=== PATIENT | female | born 1970 | race African-American/Black ===

== ENCOUNTER 2021-06-10 14:40 | Inpatient (IN) ==
[2021-06-10] MEDS ORDERED: ZOFRAN INJ 4 MG VIAL IVP ONE (15:19)
[2021-06-10] MEDS ORDERED: NS 1000 ML 1,000 ML IV ONE (15:19)
[2021-06-10] MEDS ORDERED: TORADOL 30 MG VIAL IVP ONE (15:19)
[2021-06-10 15:22] VITALS: BMI 30.6
--- NOTE | 2021-06-10 15:25 | DR.DIZZY ---
HPI Time seen Time Seen by Provider: 06/10/21 15:05 Complaint Chief Complaint Doctor Comments: 51 y/o female recently diagnosed with covid 8 days ago, presents with persistent N/V and diarrhea. Seen here 2 days ago for the same. Also having LLQ abdominal pain. Pain is constant, sharp, does not radiate. Nothing makes it better, nothing makes it worse. Has been having fever, chills, cough, dyspnea. Has generalized weakness. Was treated last week with azithromycin. COVID-19 Coronavirus risk:travel/contact w/high risk person: No Has patient experienced Coronavirus symptoms: Yes Coronavirus symptoms experienced: Fever, Coughing and Shortness of Breath Nurses Notes Reviewed Nurses Notes Review: Yes Source History Provided: Patient Mode of Arrival Mode of Arrival: Wheelchair Timing Came on: Gradually Duration Duration: Since Onset Location of Weakness Weakness Location: Generalized Context Onset: At rest Does pt take pot. toxic medication?: No Stroke Symptoms: None Severity Severity: Abnormal activity level Modifying factors Worsens: Nothing Associated signs and symptoms Associated Signs and Symptoms: Weak, Fever, Nausea and Vomiting PMH PMH Past Surgical History: Yes Surgical History: Social History Do you use any recreational Drugs:: No ROS Review of Systems Constitutional: Chills, Fever, Malaise, Weakness and Fatigue Eyes: No Symptoms Reported ENTM: No Symptoms Reported Respiratoy: Non-Productive Cough and Short of Breath Cardiovascular: No Symptoms Reported Gastrointestinal/Abdominal: Abdominal Pain (LLQ), Diarrhea, Nausea and Vomiting Genitourinary: No Symptoms Reported Neurological: Headache, Weakness and Dizziness Musculoskeletal: Muscle Pain Integumentary: No Symptoms Reported Hematologic/Lymphatic: No Symptoms Reported Endocrine: No Symptoms Reported Psychiatric: No Symptoms Reported All Other Systems: Reviewed and Negative PE Vital Signs Vitals: Temperature 96.7 F Pulse Rate 78 Respiratory Rate 16 Blood Pressure [Left Arm] 98/58 Blood Pressure 101/66 O2 Sat by Pulse Oximetry 96 General Limitations: No Limitations General Appearance: Alert and In No Apparent Distress Head Head Exam: Normal Inspection Eyes Eye exam: Normal Appearance ENT ENT Exam: Normal Exam Neck Neck Exam: Normal Inspection Chest Chest Inspection: Normal Inspection Respiratory Respiratory Exam: Normal Lung Sounds Bilat; negative Accessory Muscle Use and Respiratory Distress Respiratory Exam: Bilateral: Clear to Auscultation Cardiovascular Cardiovascular Exam: Regular Rate, Normal Rhythm and Normal Heart Sounds Abdominal Exam Abdominal Exam: Normal Inspection, Normal Bowel Sounds and Tenderness (LLQ, no guarding or rebound) Extremeties Extremities Exam: Normal Inspection and Full ROM; negative Edema Back Back Exam: Normal Inspection Neurologic Neurological Exam: Alert, Oriented X3 and CN II-XII Intact; negative Motor Sensory Deficit Psychiatric Psychiatric Exam: Normal Affect and Normal Mood Skin Skin Exam: Warm and Dry MDM Differential Diagnosis Differential Diagnosis Comment: covid, gastroenteritis, diverticulitis, dehydration,electrolyte abn COURSE Treatment Treatment: 51 y/o female with covid last week, not doing well. Having persistent N/V/D, now with LLQ abdominal pain. Having cough, degree of dyspnea. Good pulse ox. W/u initiated. Given IV fluids, IV zofran. 1805 - CT of abd/pelvis acce ptable. Does have covid changes in the lungs, c/w viral pneumonia. Has sludge in the GB and uterine fibroids noted. Does have degree of hyponatremia, 132. 2nd ER visit for this pt, having persistent N/V/D and 8 days into Covid infection. Will admit for further IV fluids, start remdisivir. Discussed with Dr. Marc, accepts the admission. ROR Labs Reviewed Laboratory Results Reviewed?: Yes Result Diagrams: 06/10/21 15:36 06/10/21 15:36 Laboratory: WBC 3.3 X10^3/uL (3.6-10.0) L 06/10/21 15:36 RBC 4.81 X10^6/uL (3.5-5.4) 06/10/21 15:36 Hgb 11.9 g/dL (12.0-16.0) L 06/10/21 15:36 Hct 37.0 % (36.0-47.0) 06/10/21 15:36 MCV 76.9 fL (80.0-100.0) L 06/10/21 15:36 MCH 24.7 pg (27.0-34.0) L 06/10/21 15:36 MCHC 32.1 g/dL (33.0-35.0) L 06/10/21 15:36 RDW 18.2 % (11.6-16.5) H 06/10/21 15:36 Plt Count 146 X10^3/uL (150.0-450.0) L 06/10/21 15:36 MPV 9.0 fL (7.4-11.0) 06/10/21 15:36 Neut % (Auto) 55.5 % (42.0-75.0) 06/10/21 15:36 Lymph % (Auto) 33.9 % (21.0-51.0) 06/10/21 15:36 [place] % (Auto) 9.5 % (0.0-13.0) 06/10/21 15:36 Eos % (Auto) 0.4 % (0.9-2.9) L 06/10/21 15:36 Baso % (Auto) 0.7 % (0.2-1.0) 06/10/21 15:36 Neut # (Auto) 1.8 x10^3/uL (2.2-4.8) L 06/10/21 15:36 Lymph # (Auto) 1.1 X10^3/uL (1.3-2.9) L 06/10/21 15:36 [place] # (Auto) 0.3 x10^3/uL (0.3-0.8) 06/10/21 15:36 Eos # (Auto) 0.0 x10^3/uL (0.0-0.2) 06/10/21 15:36 Baso # (Auto) 0.0 X10^3/uL (0.0-0.1) 06/10/21 15:36 Absolute Nucleated RBC 0.1 /100WBC 06/10/21 15:36 Sodium 132 mmol/L (136-145) L 06/10/21 15:36 Corrected Sodium TNP 06/10/21 15:36 Potassium 4.5 mmol/L (3.5-5.1) 06/10/21 15:36 Chloride 97 mmol/L (98-107) L 06/10/21 15:36 Carbon Dioxide 27.7 mmol/L (21-32) 06/10/21 15:36 BUN 20 mg/dL (7-18) H 06/10/21 15:36 Creatinine 1.54 mg/dL (0.55-1.02) H 06/10/21 15:36 Est GFR (MDRD) Af Amer 46 (>60) L 06/10/21 15:36 Est GFR (MDRD) Non-Af 38 (>60) L 06/10/21 15:36 Glucose 94 mg/dL (65-99) 06/10/21 15:36 Calcium 8.5 mg/dL (8.5-10.1) 06/10/21 15:36 Corrected Calcium TNP 06/10/21 15:36 Total Bilirubin 1.60 mg/dL (0.2-1.0) H 06/10/21 15:36 AST 47 Units/L (15-37) H 06/10/21 15:36 ALT 17 Units/L (12-78) 06/10/21 15:36 Alkaline Phosphatase 63 Units/L (46-116) 06/10/21 15:36 Total Protein 7.2 g/dL (6.4-8.2) 06/10/21 15:36 Albumin 3.4 g/dL (3.4-5.0) 06/10/21 15:36 Globulin 3.8 g/dL (2.5-4.5) 06/10/21 15:36 Albumin/Globulin Ratio 0.9 Ratio (1.1-2.1) L 06/10/21 15:36 Lipase 290 Units/L (73-393) 06/10/21 15:36 Other Results Comments: Mild hyponatremia XRAY XRAY Interpreted by: Radiologist X-ray Results: CT without acute abnormalities. CXR - with changes c/w covid pneumonia Opioid Opioid Risk Tool Age (Agustin box if 16-45): No History of Preadolescent Sexual Abuse: No Total: 0 Total Score Risk Category: Low Risk Copyright: Demetrio PHAM predicting aberrant behaviors Diagnosis Discharge Problem: Acute hyponatremia, Vomiting and diarrhea, Pneumonia due to COVID-19 virus
[2021-06-10] MEDS ORDERED: NS 1000 ML 1,000 ML ONE (15:32)
[2021-06-10 15:49] LABS: BASOPHILS % (AUTO) 0.7 % (0.2-1.0); EOSINOPHILS % (AUTO) 0.4 % (0.9-2.9); HEMOGLOBIN 11.9 g/dL (12.0-16.0); LYMPHOCYTES # (AUTO) 1.1 X10^3/uL (1.3-2.9); LYMPHOCYTES % (AUTO) 33.9 % (21.0-51.0); MEAN CORPUSCULAR HEMOGLOBIN 24.7 pg (27.0-34.0); MEAN CORPUSCULAR HGB CONC 32.1 g/dL (33.0-35.0); MEAN CORPUSCULAR VOLUME 76.9 fL (80.0-100.0); MONOCYTES # (AUTO) 0.3 x10^3/uL (0.3-0.8); MONOCYTES % (AUTO) 9.5 % (0.0-13.0); NEUTROPHILS # (AUTO) 1.8 x10^3/uL (2.2-4.8); NEUTROPHILS % (AUTO) 55.5 % (42.0-75.0); PLATELET COUNT 146 X10^3/uL (150.0-450.0); RED BLOOD COUNT 4.81 X10^6/uL (3.5-5.4); RED CELL DISTRIBUTION WIDTH 18.2 % (11.6-16.5); WHITE BLOOD COUNT 3.3 X10^3/uL (3.6-10.0)
[2021-06-10 15:58] LABS: ALANINE AMINOTRANSFERASE 17 Units/L (12-78); ALBUMIN 3.4 g/dL (3.4-5.0); ALKALINE PHOSPHATASE 63 Units/L (46-116); ASPARTATE AMINO TRANSFERASE 47 Units/L (15-37); BLOOD UREA NITROGEN 20 mg/dL (7-18); CALCIUM 8.5 mg/dL (8.5-10.1); CARBON DIOXIDE 27.7 mmol/L (21-32); CHLORIDE 97 mmol/L (98-107); CREATININE 1.54 mg/dL (0.55-1.02); LIPASE 290 Units/L (73-393); SODIUM 132 mmol/L (136-145); TOTAL PROTEIN 7.2 g/dL (6.4-8.2); eGFR NON BLACK RACES 38 (>60)
[2021-06-10] MEDS ORDERED: TORADOL 30 MG VIAL ONE (16:07)
[2021-06-10] MEDS ORDERED: ZOFRAN INJ 4 MG VIAL ONE (16:08)
--- NOTE | 2021-06-10 16:37 | RAD ---
HISTORYpt reports she tested covid + on 06/02/21, was feeling better but diarrhea and abd pain returned C-SECTIONSTUDYCHEST, 1 VIEWCOMPARISON: NoneFINDINGSThe trachea is midline. There is an automated device projecting in the left lower chest with a lead in the right upper chest. There is [id number] cardiomegaly. There is central vascular congestion with ground-glass radiopacities in the perihilar regions with asymmetry right more than left,there is also some ground-glass radiopacities in the right lower lobe suggestive of more focal pneumoniaIMPRESSIONPerihilar radiopacities right more than left as well as in the right lower lobe could represent viral pneumonia and less likely pulmonary edema. Central congestion without Vinayak B-lines or interstitial pulmonary edemaElectronically signed by: Corry Lund (Jun 10, 2021 16:34:58)
--- NOTE | 2021-06-10 17:08 | CT ---
HISTORYPt was seen on 06/08 for abd pain & n/v/d. got IV fluids and meds on 06/08, was feeling better but diarrhea and abd pain returned this morning.STUDYABDOMEN/PELVIS W/O CONCOMPARISONNone availableTECHNIQUEAxial images through the abdomen and pelvis were performed without contrast. CT scan was performed following ALARA (As low as Reasonably Achievable).Coronal and Sagittal reformatted images were performed.FINDINGSThe lung bases demonstrate patchy perihilar infiltrates bilaterally with some air bronchogram. There is cardiomegaly. There is also a patchy radiopacity in the right middle lobe and some ground-glass radiopacity in the periphery suspicious for pneumonia.The liver demonstrate no focal lesions and measures 17 centimeters. The spleen is nonenlarged, the stomach is not distended, the pancreas is unremarkable for noncontrast CT. There is suspected sludge in the gallbladder, no inflammatory changes at the level. There is no adrenal masses. There are bilateral normal-sized kidneys without hydronephrosis. No focal dilatation of the abdominal aorta. There is a small umbilical hernia containing a bowel loop without obstruction. There is no evidence of free air or free fluidPelvis the uterus is diffusely enlarge with multiple intramural and subserosal fibroids, measuring approximately 18.3 x 9.3 by 10.3 centimeters, the uterus cannot be well identified. The vagina is deviated to the right. There is no evidence of pelvic adenopathy, no free fluid in the cul de sac, there is mass effect in the urinary bladder for diffusely enlarged uterus. No colitis. No secondary signs of appendicitis.Bone windows no evidence of aggressive bone lesions. No acute fractures.IMPRESSIONPatchy perihilar infiltrates with air bronchogram as well as right middle lobe and peripheral ground-glass radiopacities suspicious for viral pneumonia.Diffusely enlarged and distorted uterus with multiple fibroids with the uterus projecting above the pelvic ring consider fibroids. No free air or free fluidUmbilical hernia containing small bowel loops without obstructionSludge in the gallbladderElectronically signed by: Corry Lund (Jun 10, 2021 17:06:57)
[2021-06-10 18:18] LABS: GLUCOSE, URINE NEGATIVE (NEGATIVE); KETONES,URINE 1+ (NEGATIVE); LEUKOCYTE ESTERASE ,URINE 1+ (NEGATIVE); PROTEIN,URINE 3+ (NEGATIVE)
[2021-06-10 19:44] LABS: BILIRUBIN,URINE 2+ (NEGATIVE); BLOOD/HEMOGLOBIN,URINE 2+ (NEGATIVE); NITRITES,URINE POSITIVE (NEGATIVE); UROBILINOGEN,URINE 3+ (NORMAL)
[2021-06-10 19:54] LABS: APPEARANCE,URINE SLIGHTLY HAZY (CLEAR); COLOR,URINE DARK YELLOW (YELLOW)
[2021-06-10 19:55] LABS: RBC,URINE 0-2 /HPF (0-3)
[2021-06-10 19:56] LABS: BACTERIA,URINE 4+ /HPF (NEGATIVE); GRANULAR CASTS,URINE NUMEROUS /LPF (NEGATIVE); SQUAMOUS EPITHELIAL CELL,UR MODERATE /HPF (NEGATIVE)
[2021-06-10] MEDS ORDERED: PEPCID TAB 40 MG PO SCH (21:00)
[2021-06-10 21:15] LABS: BASOPHILS # (AUTO) 0.1 X10^3/uL (0.0-0.1); BASOPHILS % (AUTO) 2.3 % (0.2-1.0); EOSINOPHILS % (AUTO) 0.8 % (0.9-2.9); HEMATOCRIT 37.8 % (36.0-47.0); LYMPHOCYTES # (AUTO) 1.1 X10^3/uL (1.3-2.9); LYMPHOCYTES % (AUTO) 35.9 % (21.0-51.0); MEAN CORPUSCULAR HEMOGLOBIN 24.4 pg (27.0-34.0); MEAN CORPUSCULAR HGB CONC 31.6 g/dL (33.0-35.0); MEAN CORPUSCULAR VOLUME 77.2 fL (80.0-100.0); MEAN PLATELET VOLUME 9.4 fL (7.4-11.0); MONOCYTES # (AUTO) 0.3 x10^3/uL (0.3-0.8); MONOCYTES % (AUTO) 9.8 % (0.0-13.0); NEUTROPHILS # (AUTO) 1.5 x10^3/uL (2.2-4.8); NEUTROPHILS % (AUTO) 51.2 % (42.0-75.0); PLATELET COUNT 151 X10^3/uL (150.0-450.0); RED CELL DISTRIBUTION WIDTH 18.5 % (11.6-16.5)
[2021-06-10 21:27] LABS: ALANINE AMINOTRANSFERASE 17 Units/L (12-78); ALBUMIN 3.2 g/dL (3.4-5.0); ALKALINE PHOSPHATASE 61 Units/L (46-116); ASPARTATE AMINO TRANSFERASE 42 Units/L (15-37); BLOOD UREA NITROGEN 22 mg/dL (7-18); CALCIUM 8.4 mg/dL (8.5-10.1); CARBON DIOXIDE 23.5 mmol/L (21-32); CHLORIDE 98 mmol/L (98-107); CREATININE 1.67 mg/dL (0.55-1.02); SODIUM 133 mmol/L (136-145); TOTAL PROTEIN 6.9 g/dL (6.4-8.2); TROPONIN I 0.03 ng/mL (0-1.5); eGFR NON BLACK RACES 35 (>60)
[2021-06-10] MEDS ORDERED: BROVANA ONE (21:30)
[2021-06-10] MEDS ORDERED: PULMICORT NEB TX 0.5 MG NEB ONE (21:31)
[2021-06-10 21:32] LABS: GIANT PLATELET FEW
[2021-06-10 21:33] LABS: PLATELET MORPHOLOGY COMMENT ABNORMAL (NORMAL)
[2021-06-10] MEDS: BROVANA IN SCH (21:43)
[2021-06-10] MEDS: PULMICORT NEB TX 0.5 MG NEB SCH (21:43)
[2021-06-10] MEDS ORDERED: REMDESIVIR 200 MG in NS 250 ML IV 250 ML IV ONE (22:00)
[2021-06-10] MEDS: VIBRAMYCIN 100 MG in D5W 250 ML IV 250 ML IV SCH (23:30)
[2021-06-10] MEDS: NS 1000 ML 1,000 ML IV SCH (23:40)
[2021-06-11] MEDS: LOVENOX INJ 30 MG SYR SC SCH ×2 (02:00→08:42)
[2021-06-11 04:58] LABS: BASOPHILS % (AUTO) 0.4 % (0.2-1.0); EOSINOPHILS % (AUTO) 1.8 % (0.9-2.9); HEMATOCRIT 34.1 % (36.0-47.0); LYMPHOCYTES # (AUTO) 1.3 X10^3/uL (1.3-2.9); LYMPHOCYTES % (AUTO) 49.4 % (21.0-51.0); MEAN CORPUSCULAR HEMOGLOBIN 25.5 pg (27.0-34.0); MEAN CORPUSCULAR HGB CONC 32.3 g/dL (33.0-35.0); MEAN PLATELET VOLUME 9.7 fL (7.4-11.0); MONOCYTES # (AUTO) 0.3 x10^3/uL (0.3-0.8); MONOCYTES % (AUTO) 11.6 % (0.0-13.0); NEUTROPHILS % (AUTO) 36.8 % (42.0-75.0); PLATELET COUNT 153 X10^3/uL (150.0-450.0); RED BLOOD COUNT 4.32 X10^6/uL (3.5-5.4); RED CELL DISTRIBUTION WIDTH 18.2 % (11.6-16.5); WHITE BLOOD COUNT 2.6 X10^3/uL (3.6-10.0)
[2021-06-11 05:17] LABS: ALANINE AMINOTRANSFERASE 14 Units/L (12-78); ALBUMIN 2.9 g/dL (3.4-5.0); ALKALINE PHOSPHATASE 55 Units/L (46-116); ASPARTATE AMINO TRANSFERASE 39 Units/L (15-37); BLOOD UREA NITROGEN 22 mg/dL (7-18); CALCIUM 8.1 mg/dL (8.5-10.1); CARBON DIOXIDE 26.2 mmol/L (21-32); CHLORIDE 99 mmol/L (98-107); CREATININE 1.53 mg/dL (0.55-1.02); SODIUM 134 mmol/L (136-145); TOTAL PROTEIN 6.5 g/dL (6.4-8.2); eGFR NON BLACK RACES 38 (>60)
[2021-06-11] MEDS: NS 1000 ML 1,000 ML IV SCH ×3 (06:26→21:00)
[2021-06-11] MEDS: VIBRAMYCIN 100 MG in D5W 250 ML IV 250 ML IV SCH ×2 (08:43→21:00)
[2021-06-11] MEDS: PEPCID TAB 20 MG PO SCH (08:43)
[2021-06-11] MEDS: BROVANA IN SCH ×2 (09:35→20:45)
[2021-06-11] MEDS: PULMICORT NEB TX 0.5 MG NEB SCH ×2 (09:35→20:45)
[2021-06-11] MEDS: ALDACTONE TAB 25 MG PO SCH (09:45)
[2021-06-11] MEDS: COREG TAB 12.5 MG PO SCH ×2 (09:45→21:00)
[2021-06-11] MEDS: LASIX PO SCH (09:45)
[2021-06-11] MEDS: MICRO K EXTEN CAP 10 MEQ PO SCH (09:46)
--- NOTE | 2021-06-11 10:17 | DR.H&P ---
H&P History & Physical for Day of: H&P Date: 06/11/21 Chief Complaint Chief Complaint: Nausea/vomiting, diarrhea Weakness Allergies Allergies Allergy/AdvReac Type Severity Reaction Status Date / Time amoxicillin Allergy Verified 06/10/21 14:48 prednisone Allergy Verified 06/08/21 21:11 History of Present Illness History of Present Illness: Pt is a 51 year old female past medical history Cardiomyopathy(Defibrillator, EF~20% per patient), presenting with COVID-19 infection that was diagnosed 1 week ago. Since then, she has had persistent nausea, vomiting, diarrhea, and generalized weakness. Denies shortness of breath. Labs/imaging: Wbc 2.6, Hgb 11, Plt 153, Na 133, K 4.3, Creatinine 1.53, Glucose 90, COVID-19 positive, CXR: Perihilar radiopacities right more than left as well as in the right lower lobe could represent viral pneumonia and less likely pulmonary edema. Central congestion without Vinayak B-lines or interstitial pulmonary edema. CTAP: Patchy perihilar infiltrates with air bronchogram as well as right middle lobe and peripheral ground-glass radiopacities suspicious for viral pneumonia. Diffusely enlarged and distorted uterus with multiple fibroids with the uterus projecting above the pelvic ring consider fibroids. No free air or free fluid. Umbilical hernia containing small bowel loops without obstruction. Sludge in the gallbladder. Pt was started on IVF NS@125ml/h, Remdesivir, IV Doxycycline, IV Zofran prn for nausea, pneumonia protocol. Will decrease IVF to KVO due to HFrEF. Advance diet as tolerated. Continue to monitor and follow up labs in the morning. Past Surgical History Surgical History: Family History Family Medical History: Hypertension Social History Does patient currently use any type of tobacco product: No Alcohol Use: None Drug Use: None Medications Home Medications: amoxicillin Allergy (Verified 06/10/21 14:48) prednisone Allergy (Verified 06/08/21 21:11) CONTINUE taking the following medications apixaban [Eliquis] 2.5 mg PO BID 06/11/21 [History] carvedilol 12.5 mg PO BID 06/11/21 [History] furosemide 40 mg PO DAILY 06/11/21 [History] potassium chloride 10 meq PO DAILY 06/11/21 [History] spironolactone 25 mg PO DAILY 06/11/21 [History] zinc sulfate 220 mg PO BID 06/11/21 [History] Labs Result Diagrams: 06/11/21 04:05 06/11/21 04:05 Labs: Laboratory WBC 2.6 X10^3/uL (3.6-10.0) L 06/11/21 04:05 RBC 4.32 X10^6/uL (3.5-5.4) 06/11/21 04:05 Hgb 11.0 g/dL (12.0-16.0) L 06/11/21 04:05 Hct 34.1 % (36.0-47.0) L 06/11/21 04:05 MCV 79.0 fL (80.0-100.0) L 06/11/21 04:05 MCH 25.5 pg (27.0-34.0) L 06/11/21 04:05 MCHC 32.3 g/dL (33.0-35.0) L 06/11/21 04:05 RDW 18.2 % (11.6-16.5) H 06/11/21 04:05 Plt Count 153 X10^3/uL (150.0-450.0) 06/11/21 04:05 Plt Count Comment Adequate (ADEQUATE) 06/10/21 21:05 MPV 9.7 fL (7.4-11.0) 06/11/21 04:05 Neut % (Auto) 36.8 % (42.0-75.0) L 06/11/21 04:05 Lymph % (Auto) 49.4 % (21.0-51.0) 06/11/21 04:05 [place] % (Auto) 11.6 % (0.0-13.0) 06/11/21 04:05 Eos % (Auto) 1.8 % (0.9-2.9) 06/11/21 04:05 Baso % (Auto) 0.4 % (0.2-1.0) 06/11/21 04:05 Neut # (Auto) 1.0 x10^3/uL (2.2-4.8) L 06/11/21 04:05 Lymph # (Auto) 1.3 X10^3/uL (1.3-2.9) 06/11/21 04:05 [place] # (Auto) 0.3 x10^3/uL (0.3-0.8) 06/11/21 04:05 Eos # (Auto) 0.0 x10^3/uL (0.0-0.2) 06/11/21 04:05 Baso # (Auto) 0.0 X10^3/uL (0.0-0.1) 06/11/21 04:05 Absolute Nucleated RBC 0.4 /100WBC 06/11/21 04:05 Giant Platelets Few 06/10/21 21:05 Plt Morphology Comment Abnormal (NORMAL) A 06/10/21 21:05 RBC Morphology Normal (NORMAL) 06/10/21 21:05 Sodium 134 mmol/L (136-145) L 06/11/21 04:05 Corrected Sodium TNP 06/11/21 04:05 Potassium 3.7 mmol/L (3.5-5.1) 06/11/21 04:05 Chloride 99 mmol/L (98-107) 06/11/21 04:05 Carbon Dioxide 26.2 mmol/L (21-32) 06/11/21 04:05 BUN 22 mg/dL (7-18) H 06/11/21 04:05 Creatinine 1.53 mg/dL (0.55-1.02) H 06/11/21 04:05 Est GFR (MDRD) Af Amer 46 (>60) L 06/11/21 04:05 Est GFR (MDRD) Non-Af 38 (>60) L 06/11/21 04:05 Glucose 83 mg/dL (65-99) 06/11/21 04:05 POC Glucose (mg/dL) 75 mg/dL (65-99) 06/11/21 06:01 Calcium 8.1 mg/dL (8.5-10.1) L 06/11/21 04:05 Corrected Calcium 9.0 mg/dL (8.5-10.1) 06/11/21 04:05 Total Bilirubin 1.40 mg/dL (0.2-1.0) H 06/11/21 04:05 AST 39 Units/L (15-37) H 06/11/21 04:05 ALT 14 Units/L (12-78) 06/11/21 04:05 Alkaline Phosphatase 55 Units/L (46-116) 06/11/21 04:05 Troponin I 0.03 ng/mL (0-1.5) 06/10/21 21:05 Total Protein 6.5 g/dL (6.4-8.2) 06/11/21 04:05 Albumin 2.9 g/dL (3.4-5.0) L 06/11/21 04:05 Globulin 3.6 g/dL (2.5-4.5) 06/11/21 04:05 Albumin/Globulin Ratio 0.8 Ratio (1.1-2.1) L 06/11/21 04:05 Lipase 290 Units/L (73-393) 06/10/21 15:36 Specimen Type Clean catch urine 06/10/21 16:48 Urine Color Dark yellow (YELLOW) 06/10/21 16:48 Urine Appearance Slightly hazy (CLEAR) 06/10/21 16:48 Urine pH 5.0 (5.0 - 8.0) 06/10/21 16:48 Ur Specific [place] 1.030 (1.000-1.030) 06/10/21 16:48 Urine Protein 3+ (NEGATIVE) 06/10/21 16:48 Urine Glucose (UA) Negative (NEGATIVE) 06/10/21 16:48 Urine Ketones 1+ (NEGATIVE) 06/10/21 16:48 Urine Occult Blood 2+ (NEGATIVE) 06/10/21 16:48 Urine Nitrite Positive (NEGATIVE) 06/10/21 16:48 Urine Bilirubin 2+ (NEGATIVE) 06/10/21 16:48 Urine Urobilinogen 3+ (NORMAL) 06/10/21 16:48 Ur Leukocyte Esterase 1+ (NEGATIVE) 06/10/21 16:48 Urine RBC 0-2 /HPF (0-3) 06/10/21 16:48 Urine WBC 5-10 /HPF (0-5) A 06/10/21 16:48 Ur Squamous Epith Cells Moderate /HPF (NEGATIVE) 06/10/21 16:48 Urine Bacteria 4+ /HPF (NEGATIVE) 06/10/21 16:48 Granular Casts Numerous /LPF (NEGATIVE) 06/10/21 16:48 Ur Culture Indicated? Yes/culture set up 06/10/21 16:48 Review of Systems Constitutional: Weakness; denies Fever and Chills Eyes: No Symptoms Reported ENT: No Symptoms Reported Respiratory: No Symptoms Reported Cardiovascular: No Symptoms Reported Gastrointestinal: Nausea, Vomiting, Abdominal Pain and Diarrhea; denies Constipation Genitourinary: No Symptoms Reported Musculoskeletal: No Symptoms Reported Skin: No Symptoms Reported Neurological: No Symptoms Reported Physical Exam Vital Signs: Temperature 97.4 F Pulse Rate [Apical] 70 Pulse Rate 83 Respiratory Rate 20 Blood Pressure [Left Arm] 101/64 Blood Pressure 101/66 O2 Sat by Pulse Oximetry 97 Oriented: Normal Eyes: Normal Ear: Normal Nose: Normal Throat: Normal Respiratory: Clear Throughout Cardiovascular: Normal : Normal Auscultation: Bowel Sounds: Normal Palpation: Normal Tenderness: Epigastric and Mild Skin: Normal Musculoskeletal: Normal Psychiatric: Normal Mood Description: Calm and Appropriate Affect: Normal Speech Pattern: Clear and Appropriate Assessment/Plan (1) Acute dehydration: Status: Acute (2) COVID-19 virus infection: Status: Acute (3) Acute hyponatremia: Status: Acute (4) Vomiting and diarrhea: Status: Acute Review H&P Reviewed: Yes Patient was examined?: Yes
[2021-06-11] MEDS: ZOFRAN INJ 4 MG VIAL IVP PRN (11:38)
[2021-06-11] MEDS: XANAX PO PRN (12:06)
[2021-06-11] MEDS: REMDESIVIR 100 MG in NS 250 ML IV 250 ML IV SCH (20:00)
[2021-06-11] MEDS: ELIQUIS PO SCH (21:00)
[2021-06-12 06:09] LABS: BASOPHILS % (AUTO) 0.4 % (0.2-1.0); EOSINOPHILS % (AUTO) 1.5 % (0.9-2.9); HEMATOCRIT 34.4 % (36.0-47.0); HEMOGLOBIN 11.2 g/dL (12.0-16.0); LYMPHOCYTES # (AUTO) 1.3 X10^3/uL (1.3-2.9); LYMPHOCYTES % (AUTO) 42.4 % (21.0-51.0); MEAN CORPUSCULAR HEMOGLOBIN 26.3 pg (27.0-34.0); MEAN CORPUSCULAR HGB CONC 32.7 g/dL (33.0-35.0); MEAN CORPUSCULAR VOLUME 80.4 fL (80.0-100.0); MEAN PLATELET VOLUME 9.8 fL (7.4-11.0); MONOCYTES # (AUTO) 0.4 x10^3/uL (0.3-0.8); MONOCYTES % (AUTO) 14.2 % (0.0-13.0); NEUTROPHILS # (AUTO) 1.2 x10^3/uL (2.2-4.8); NEUTROPHILS % (AUTO) 41.5 % (42.0-75.0); PLATELET COUNT 181 X10^3/uL (150.0-450.0); RED BLOOD COUNT 4.28 X10^6/uL (3.5-5.4); RED CELL DISTRIBUTION WIDTH 18.6 % (11.6-16.5)
[2021-06-12 06:14] LABS: ALANINE AMINOTRANSFERASE 16 Units/L (12-78); ALBUMIN 2.8 g/dL (3.4-5.0); ALKALINE PHOSPHATASE 65 Units/L (46-116); ASPARTATE AMINO TRANSFERASE 37 Units/L (15-37); BLOOD UREA NITROGEN 19 mg/dL (7-18); CALCIUM 8.2 mg/dL (8.5-10.1); CARBON DIOXIDE 23.4 mmol/L (21-32); CHLORIDE 102 mmol/L (98-107); COR CA(FOR HYPOALB) 9.2 mg/dL (8.5-10.1); CREATININE 1.36 mg/dL (0.55-1.02); SODIUM 133 mmol/L (136-145); TOTAL PROTEIN 6.3 g/dL (6.4-8.2); eGFR NON BLACK RACES 44 (>60)
[2021-06-12 07:04] LABS: ANISOCYTOSIS SLIGHT; PLATELET MORPHOLOGY COMMENT NORMAL (NORMAL); TARGET CELLS PRESENT
[2021-06-12] MEDS: ELIQUIS PO SCH (08:05)
[2021-06-12] MEDS: COREG TAB 12.5 MG PO SCH ×2 (08:05→20:50)
[2021-06-12] MEDS: ALDACTONE TAB 25 MG PO SCH (08:06)
[2021-06-12] MEDS: MICRO K EXTEN CAP 10 MEQ PO SCH (08:06)
[2021-06-12] MEDS: VIBRAMYCIN 100 MG in D5W 250 ML IV 250 ML IV SCH ×2 (08:06→22:30)
[2021-06-12] MEDS: LASIX PO SCH (08:06)
[2021-06-12] MEDS: PEPCID TAB 20 MG PO SCH (08:07)
[2021-06-12] MEDS: PULMICORT NEB TX 0.5 MG NEB SCH ×2 (08:10→20:05)
[2021-06-12] MEDS: BROVANA IN SCH ×2 (08:10→20:05)
[2021-06-12] MEDS: NS 1000 ML 1,000 ML IV SCH ×2 (08:23→17:49)
[2021-06-12] MEDS ORDERED: SOLU-Medrol 40 MG VIAL IVP SCH (10:00)
[2021-06-12] MEDS ORDERED: PHARMACY CONSULT - LOVENOX XX SCH (10:00)
[2021-06-12] MEDS: XANAX PO PRN (11:04)
[2021-06-12] MEDS: ZOFRAN INJ 4 MG VIAL IVP PRN (11:04)
[2021-06-12] MEDS ORDERED: NS 1000 ML 1,000 ML IV ONE (11:41)
[2021-06-12 11:44] LABS: ABG BASE EXCESS -2.8 mmol/L (-2.0-2.0); ABG HCO3 20.6 mmol/L (22-26)
[2021-06-12 11:45] LABS: ABG ALLEN TEST POS
[2021-06-12] MEDS ORDERED: DOPAMINE IV PREMIX 400 MG/250 ML 400 MG/250 ML BAG IV ONE (11:58)
[2021-06-12] MEDS: DOPAMINE IV PREMIX 400 MG/250 ML 400 MG/250 ML BAG IV PRN ×2 (12:00→15:36)
[2021-06-12] MEDS ORDERED: HEPARIN SODIUM INJ 5000 UNITS ONE (12:11)
[2021-06-12] MEDS ORDERED: HEPARIN SODIUM IN D5W 25,000 UNITS/500 ML BAG ONE (12:11)
[2021-06-12] MEDS ORDERED: NS 100 ML IV 100 ML ONE (12:11)
[2021-06-12] MEDS ORDERED: HEPARIN SODIUM INJ 5000 UNITS IVP ONE (12:16)
[2021-06-12] MEDS ORDERED: HEPARIN SODIUM IN D5W 25,000 UNITS/500 ML BAG IV PRN (12:17)
--- NOTE | 2021-06-12 14:34 | CT ---
HISTORYChange in level of consciousnessSTUDYCT HEAD WITHOUT CONTRASTCOMPARISONNoneTECHNIQUEAxial CT of the head is performed from the base of the skull through the vertex WITHOUT contrast . Multiplaner reformats are generated from the original axial data.FINDINGSNo intracranial hemorrhage or extra-axial fluid collection. No mass effect, midline shift or evidence of cerebral edema. Ventricular size is normal. Cortical headley-white matter differentiation is maintained without sulcal effacement. There is no evidence of an acute stage large artery territorial infarction. Calvarium is intact. Sinuses and mastoid air cells are predominantly clear. The cerebellar tonsils are in a normal position.IMPRESSIONNo acute intracranial abnormalities.Radiation dose reduction was achieved through individualized adjustment of kVP and/or mA, through adaptive statistical iterative reconstruction, and/or through automated tube current modulation.Electronically signed by: NANCY EDMONDS (Jun 12, 2021 14:32:53)
--- NOTE | 2021-06-12 14:58 | CT ---
HISTORYElevated D-dimerSTUDYCTA OF THE CHEST WITH CONTRASTCOMPARISONPortable chest radiograph of same dayTECHNIQUEAxial CT was performed from the thoracic inlet to the upper abdomen with an arterial phase IV contrast bolus. The axial sequences are reconstructed with multiplaner reformats;volume rendered MIP and/or 3D reconstruction was generated from the original axial dataset.FINDINGSThe quality of this examination is degraded significantly as result of patient related motion artifact and body habitus, in addition to artifact related to battery pack along the left chest wall. This limits the overall evaluation of the segmental and subsegmental pulmonary artery branches. Additionally, suboptimal propagation of contrast is noted into the distal branches of the pulmonary arteries. There is significant cardiomegaly with multi chamber dilation indicating cardiac dysfunction. There are no filling defects associated with the main, lobar or proximal segmental pulmonary artery branches. Thoracic aorta caliber is average. There is a small pericardial effusion.Patchy areas of consolidation are demonstrated within the alveolar space of the bilateral lungs, radiating from the hilar regions into the bilateral lower lobes. The more apical regions are spared with respect to consolidation, however, there is evidence of interstitial prominence and ground-glass attenuation within the alveolar space and peribronchial distribution of the bilateral upper lobes. Additional patchy subpleural lung opacities are demonstrated bilaterally. There is a small left-sided pleural effusion and a trace right-sided pleural effusion.Reflux of contrast into the IVC and hepatic veins suggest underlying right-sided heart dysfunction. There is nonspecific gallbladder wall thickening and pericholecystic fluid in the setting of right-sided heart dysfunction. The adrenal glands remain symmetric in size and morphology. No enlarged lymph nodes are identified. The coronal reconstruction demonstrates evidence of interlobular septal thickening. Evaluation of the osseous structures demonstrates no aggressive bony lesions or acute osseous abnormalities.IMPRESSIONNo central, main or proximal lobar pulmonary thromboembolism identified. The evaluation of the distal segmental and subsegmental branches is limited, as above.Significant cardiomegaly with multi chamber dilation, vascular congestion interlobular septal thickening, and small left-sided pleural effusionDense perihilar and lower lobe alveolar consolidation, patchy ground-glass opacities and subpleural opacities of the bilateral lungs.- The above findings may represent any combination of atypical pneumonia and superimposed edema. Radiographic follow-up is recommended.Nonspecific gallbladder wall thickening/pericholecystic fluid in the setting of right-sided heart dysfunction.Radiation dose reduction was achieved through individualized adjustment of kVP and/or mA, through adaptive statistical iterative reconstruction, and/or through automated tube current modulation.Electronically signed by: NANCY EDMONDS (Jun 12, 2021 14:55:40)
[2021-06-12] MEDS ORDERED: NS 1000 ML 1,000 ML IV SCH (16:00)
[2021-06-12 16:32] LABS: LACTIC ACID 1.6 mmol/L (0.4-2.0)
[2021-06-12 16:38] LABS: CKMB % 1.1 % (<4); CREATINE KINASE 95 Units/L (26-192); CREATINE KINASE MB < 1.0 ng/mL (0-4.0); MAGNESIUM 1.7 mg/dL (1.7-2.9); TROPONIN I < 0.02 ng/mL (0-1.5)
[2021-06-12 19:56] LABS: CKMB % 1.2 % (<4); CREATINE KINASE 87 Units/L (26-192); CREATINE KINASE MB < 1.0 ng/mL (0-4.0); TROPONIN I < 0.02 ng/mL (0-1.5)
[2021-06-12] MEDS: REMDESIVIR 100 MG in NS 250 ML IV 250 ML IV SCH (20:45)
[2021-06-13 00:06] LABS: CKMB % 1.2 % (<4); CREATINE KINASE 81 Units/L (26-192); CREATINE KINASE MB < 1.0 ng/mL (0-4.0); TROPONIN I < 0.02 ng/mL (0-1.5)
[2021-06-13 05:19] LABS: BASOPHILS % (AUTO) 0 % (0.2-1.0); HEMATOCRIT 34.5 % (36.0-47.0); HEMOGLOBIN 11.2 g/dL (12.0-16.0); LYMPHOCYTES # (AUTO) 0.7 X10^3/uL (1.3-2.9); LYMPHOCYTES % (AUTO) 22.9 % (21.0-51.0); MEAN CORPUSCULAR HEMOGLOBIN 26.4 pg (27.0-34.0); MEAN CORPUSCULAR HGB CONC 32.6 g/dL (33.0-35.0); MEAN PLATELET VOLUME 9.7 fL (7.4-11.0); MONOCYTES # (AUTO) 0.4 x10^3/uL (0.3-0.8); MONOCYTES % (AUTO) 13.8 % (0.0-13.0); NEUTROPHILS # (AUTO) 1.9 x10^3/uL (2.2-4.8); NEUTROPHILS % (AUTO) 63.3 % (42.0-75.0); PLATELET COUNT 219 X10^3/uL (150.0-450.0); RED BLOOD COUNT 4.26 X10^6/uL (3.5-5.4); RED CELL DISTRIBUTION WIDTH 18.5 % (11.6-16.5); WHITE BLOOD COUNT 2.9 X10^3/uL (3.6-10.0)
[2021-06-13 05:37] LABS: ALBUMIN 2.7 g/dL (3.4-5.0); CALCIUM 8.2 mg/dL (8.5-10.1); CARBON DIOXIDE 23.2 mmol/L (21-32); COR CA(FOR HYPOALB) 9.2 mg/dL (8.5-10.1); CREATININE 1.39 mg/dL (0.55-1.02); TOTAL PROTEIN 6.3 g/dL (6.4-8.2)
[2021-06-13 05:50] LABS: GIANT PLATELET FEW; PLATELET MORPHOLOGY COMMENT ABNORMAL (NORMAL)
[2021-06-13 05:51] LABS: ANISOCYTOSIS SLIGHT; BURR CELLS PRESENT; HYPOCHROMASIA SLIGHT; TARGET CELLS PRESENT
--- NOTE | 2021-06-13 06:10 | RAD ---
HISTORYCOVID PNEUMONIASTUDYCHEST, 1 [id number] opacity in the lung bases could be pneumonia. Findings have progressed since 2 days ago.No pleural effusion or pneumothorax.Probable cardiomegaly is unchanged.Bones are unremarkable.Left-sided ICD is present with lead unchanged in position.EKG leads are noted.IMPRESSION1. Progressed pneumoniaElectronically signed by: Kevin Ovalles (Jun 13, 2021 06:08:07)
--- NOTE | 2021-06-13 06:22 | RAD ---
HISTORYCOVID PNEUMONIASTUDYCHEST, 1 [id number]/2021FINDINGSAbnormal opacity in the lung bases is bronchopneumonia, as seen on CT 06/12/2021. But there has been improvement suggesting that a component of this was pulmonary edema. Venous congestion has resolved.No pleural effusion or pneumothorax.Cardiomegaly is stable.Bones are unremarkable.ICD with lead in the right chest is stable.EKG leads are noted.IMPRESSION1. Resolved venous congestion and pulmonary edema2. Residual predominantly basilar bronchopneumoniaElectronically signed by: Kevin Ovalles (Jun 13, 2021 06:19:32)
[2021-06-13] MEDS: BROVANA IN SCH ×2 (09:04→20:10)
[2021-06-13] MEDS: PULMICORT NEB TX 0.5 MG NEB SCH ×2 (09:04→20:10)
[2021-06-13] MEDS: PEPCID TAB 20 MG PO SCH (09:15)
[2021-06-13] MEDS: MICRO K EXTEN CAP 10 MEQ PO SCH (09:15)
[2021-06-13] MEDS: VIBRAMYCIN 100 MG in D5W 250 ML IV 250 ML IV SCH ×2 (10:20→20:34)
[2021-06-13] MEDS ORDERED: VIBRAMYCIN IV ONE (10:58)
[2021-06-13] MEDS ORDERED: NS 250 ML IV 250 ML IV ONE (10:59)
[2021-06-13] MEDS ORDERED: POTASSIUM CHL 40 MEQ/NS 0.45% 500 ML IV PRN (11:37)
[2021-06-13] MEDS ORDERED: K-DUR TAB 20 MEQ PO PRN (11:37)
[2021-06-13] MEDS ORDERED: MICRO K EXTEN CAP 10 MEQ PO PRN (11:37)
[2021-06-13] MEDS ORDERED: POTASSIUM CHL 60 MEQ/NS 0.45% 500 ML IV PRN (11:37)
[2021-06-13] MEDS ORDERED: POTASSIUM CHLORIDE LIQ 20 MEQ UDC PO PRN (11:37)
[2021-06-13] MEDS ORDERED: KLOR-CON PO PRN (11:37)
[2021-06-13] MEDS ORDERED: K-RIDER 10 MEQ/NS 100 ML 10 MEQ/100 ML BAG IV PRN (11:37)
[2021-06-13] MEDS ORDERED: MAGNESIUM SULFATE 1 GRAM/100 mL PREMIX 1 GM/100 ML BAG IV PRN (11:37)
--- NOTE | 2021-06-13 11:53 | PCM.PROG ---
Progress Note - Progress Note for Day of Date of Exam: 06/12/21 - Subjective Subjective: IS A 51 YEAR OLD PATIENT OF . SHE WAS ADMITTED ON 06/10 FOR TREATMENT OF PNEUMONIA DUE TO COVID-19, HYPONATREMIA, N/V/D. PATIENT HAS A PMH OF CARDIOMYOPATHY. SHE HAS A DEFIBRILLATOR AND REPORTS THAT HER EJECTION FRACTION IS AROUND 20%. TODAY, SHE WAS LYING IN BED WITH EYES CLOSED ON MORNING ROUNDS. SHE AWAKENED AND RESPONDED TO VERBAL STIMULI. SHE REPORTS I JUST DONT FEEL GOOD. SHE DID ADMIT TO SOME SHORTNESS OF BREATH THIS MORNING. SHE CONTINUES WITH GENERALIZED WEAKNESS AND NAUSEA. SHE WAS ON OXYGEN VIA NASAL CANNULA AT 2 LITERS/MINUTE. HER VITALS THROUGHOUT THE NIGHT HAD REMAINED IN THE HIGH 90s ON 2 LITERS. ON EXAMINATION, HEART WAS REGULAR IN RATE AND RHYTHM. BILATERAL LUNGS NOTED TO HAVE DIMINISHED LUNG SOUNDS THROUGHOUT. ABDOMEN IS ROUND, SOFT, AND NON-TENDER WITH NORMAL BOWEL SOUNDS NOTED IN ALL QUADRANTS. HER VITALS THIS MORNING WERE: 98.1-66-18-98%-102/68. LABS WERE OBTAINED. ABNORMAL LAB VALUES INCLUDED THE FOLLOWING: WBC 3.0, HGB 11.2, HCT 34.4, D-DIMER 1.28, SODIUM 133, BUN 19, CREATININE 1.36, CALCIUM 8.2, TOTAL BILI 1.10, CRP 34.0, BNP 355, TOTAL PROTEIN 6.3, ALBUMIN 2.8. BLOOD AND URINE CULTURES PENDING. CHEST XRAY REVEALED: PROGRESSED PNEUMONIA. SHE WAS RECEIVING REMDESIVIR 100MG PO DAILY, NORMAL SALINE AT KVO, DOXYCYCLINE 100MG IV Q12H, PULMICORT NEBS BID, BROVANA BID, LASIX 40MG PO DAILY, XANAX 0.5MG PO BID PRN, COREG 12.5MG PO BID, PEPCID 20MG PO DAILY, ZOFRAN 4MG IV Q6H PRN, POTASSIUM 10MEQ PO DAILY, AND ALDACTONE 25MG PO DAILY. AT APPROXIMATELY 11:35, AFTER ROUNDS, PATIENT WAS SITTING UP IN CHAIR. NURSING STAFF REPORTS THAT PATIENT STATED, "I DONT FEEL RIGHT I THINK IM GOING TO PASS OUT. AT THAT TIME, HER BLOOD PRESSURE WAS 70/42. SATURATIONS WERE 95%. WHILE ASSITING PATIENT BACK TO THE BED, PATIENT APPARENTLY HAD A SYNCOPAL EPISODE. BLOOD PRESSURE DROPPED TO 62/40 AND PATIENT HAD A FAINT PULSE. SATURATIONS REMAINED 100%. PATIENT LETHARGIC. SHE WAS GIVEN A LITER NORMAL SALINE BOLUS, HOWEVER, BLOOD PRESSURE REMAINED 62/40. DOPAMINE DRIP WAS STARTED AND HADDAD CATHETER WAS INSERTED. PATIENT BECAME MORE ALERT AND BEGAN VOMITING. BLOOD PRESSURE INCREASED TO 117/79 WITH DOPAMINE DRIP. WE ORDERED FOR A STAT CHEST CT TO RULE OUT PULMONARY EMBOLI. WE ALSO ORDERED A STAT BRAIN CT. SHE WAS STARTED ON A HEPARIN DRIP, WE SUSPECTED A PE. CHEST CTA OBTAINED AND REVEALED: No central, main or proximal lobar pulmonary thromboembolism identified. The evaluation of the distal segmental and subsegmental branches is limited. Significant cardiomegaly with multi chamber dilation, vascular congestion interlobular septal thickening, and small left-sided pleural effusion. Dense perihilar and lower lobe alveolar consolidation, patchy ground- glass opacities and subpleural opacities of the bilateral lungs. The above findi ngs may represent any combination of atypical pneumonia and superimposed edema. Nonspecific gallbladder wall thickening/pericholecystic fluid in the setting of right-sided heart dysfunction. BRAIN CT REVEALED: No acute intracranial abnormalities. WE DISCONTINUED THE HEPARIN DRIP DUE TO NORMAL CT. BLOOD PRESSURE REMAINED STABLE AND DOPAMINE DRIP WAS STOPPED. WE PLANNED TO FOLLOW UP WITH AM LABS AND CHEST XRAY AND CONTINUE TO MONITOR. TIME SPENT ON CLINICAL ASSESSMENT, REVIEWING LABS AND IMAGING, DECISION MAKING, AND DOCUMENTATION GREATER THAN 75 MINUTES. - Past Medical Family Social History Past Med/Fam/Surg Hx: No changes since H&P Allergies: Allergies methylprednisolone [From Solu-Medrol] Allergy (Severe, Verified 06/12/21 16:07) amoxicillin Allergy (Verified 06/10/21 14:48) prednisone Allergy (Verified 06/08/21 21:11) - Review of Systems ROS: No change since H&P - Vital Signs and I&O's Vital Signs: Temperature 98.0 F Pulse Rate [Apical] 53 Pulse Rate 67 Respiratory Rate 20 Blood Pressure [Left Arm] 109/68 Blood Pressure 101/66 O2 Sat by Pulse Oximetry 96 Intake and Output: Intake & Output 06/10/21 06/11/21 06/12/21 06/13/21 11:59 11:59 11:59 11:59 Intake Total 1215 / 1215 2091 / 2091 3829 / 3829 Output Total 1000 / 1000 1450 / 1450 Balance 1215 / 1215 1091 / 1091 2379 / 2379 - Physical Exam Oriented: Normal Eyes: Normal Ear: Normal Nose: Normal Throat: Normal Respiratory: Generalized, Diminished Cardiovascular: Normal : Normal Auscultation: Bowel Sounds: Normal Palpation: Normal Tenderness: Normal Skin: Normal Musculoskeletal: Normal Psychiatric: Normal Mood Description: Calm, Appropriate Affect: Normal Speech Pattern: Clear, Appropriate - Laboratory and Diagnostics Result Diagrams: 06/13/21 04:02 06/13/21 04:02 Labs: 06/10/21 16:48 Urine,Clean Catch Urine Culture - Final Laboratory WBC 2.9 X10^3/uL (3.6-10.0) L 06/13/21 04:02 RBC 4.26 X10^6/uL (3.5-5.4) 06/13/21 04:02 Hgb 11.2 g/dL (12.0-16.0) L 06/13/21 04:02 Hct 34.5 % (36.0-47.0) L 06/13/21 04:02 MCV 81.0 fL (80.0-100.0) 06/13/21 04:02 MCH 26.4 pg (27.0-34.0) L 06/13/21 04:02 MCHC 32.6 g/dL (33.0-35.0) L 06/13/21 04:02 RDW 18.5 % (11.6-16.5) H 06/13/21 04:02 Plt Count 219 X10^3/uL (150.0-450.0) 06/13/21 04:02 Plt Count Comment Adequate (ADEQUATE) 06/13/21 04:02 MPV 9.7 fL (7.4-11.0) 06/13/21 04:02 Neut % (Auto) 63.3 % (42.0-75.0) 06/13/21 04:02 Lymph % (Auto) 22.9 % (21.0-51.0) 06/13/21 04:02 [place] % (Auto) 13.8 % (0.0-13.0) H 06/13/21 04:02 Eos % (Auto) 0.0 % (0.9-2.9) L 06/13/21 04:02 Baso % (Auto) 0 % (0.2-1.0) L 06/13/21 04:02 Neut # (Auto) 1.9 x10^3/uL (2.2-4.8) L 06/13/21 04:02 Lymph # (Auto) 0.7 X10^3/uL (1.3-2.9) L 06/13/21 04:02 [place] # (Auto) 0.4 x10^3/uL (0.3-0.8) 06/13/21 04:02 Eos # (Auto) 0.0 x10^3/uL (0.0-0.2) 06/13/21 04:02 Baso # (Auto) 0.0 X10^3/uL (0.0-0.1) 06/13/21 04:02 Absolute Nucleated RBC 0.0 /100WBC 06/13/21 04:02 Giant Platelets Few 06/13/21 04:02 Plt Morphology Comment Abnormal (NORMAL) A 06/13/21 04:02 RBC Morphology Abnormal (NORMAL) A 06/13/21 04:02 Hypochromasia Slight A 06/13/21 04:02 Anisocytosis Slight A 06/13/21 04:02 Target Cells Present 06/13/21 04:02 [place] Cells Present 06/13/21 04:02 PT 24.1 SECONDS (11.8-14.3) 06/12/21 12:15 INR Target Range - 06/12/21 12:15 INR 2.28 (0.8-1.3) H 06/12/21 12:15 APTT 34.8 SECONDS (22.9-36.5) 06/12/21 12:15 PTT Comment - 06/12/21 12:15 D-Dimer 1.28 ug/ml (0.0-0.57) H* 06/12/21 08:53 Sample Site Lb 06/12/21 11:36 ABG pH 7.430 (7.35-7.45) 06/12/21 11:36 ABG pCO2 31.0 mmHg (35.0-45.0) L 06/12/21 11:36 ABG pO2 66.0 mmHg (80.0-100.0) L 06/12/21 11:36 ABG HCO3 20.6 mmol/L (22-26) L 06/12/21 11:36 ABG O2 Saturation 93.0 % (90-100) 06/12/21 11:36 ABG Base Excess -2.8 mmol/L (-2.0-2.0) L 06/12/21 11:36 Lawrence Test Pos 06/12/21 11:36 A-a Gradient 95.0 mmHg 06/12/21 11:36 FiO2 28.0 06/12/21 11:36 Blood Gas Comments Pt sravani well cdn ,elj 06/12/21 11:36 Sodium 137 mmol/L (136-145) 06/13/21 04:02 Corrected Sodium 138 mmol/L (136-145) 06/13/21 04:02 Potassium 4.4 mmol/L (3.5-5.1) 06/13/21 04:02 Chloride 103 mmol/L (98-107) 06/13/21 04:02 Carbon Dioxide 23.2 mmol/L (21-32) 06/13/21 04:02 BUN 20 mg/dL (7-18) H 06/13/21 04:02 Creatinine 1.39 mg/dL (0.55-1.02) H 06/13/21 04:02 Est GFR (MDRD) Af Amer 52 (>60) L 06/13/21 04:02 Est GFR (MDRD) Non-Af 43 (>60) L 06/13/21 04:02 Glucose 129 mg/dL (65-99) H 06/13/21 04:02 POC Glucose (mg/dL) 121 mg/dL (65-99) H 06/13/21 06:00 Lactic Acid 1.6 mmol/L (0.4-2.0) 06/12/21 15:38 Calcium 8.2 mg/dL (8.5-10.1) L 06/13/21 04:02 Corrected Calcium 9.2 mg/dL (8.5-10.1) 06/13/21 04:02 Magnesium 1.7 mg/dL (1.7-2.9) 06/12/21 15:38 Total Bilirubin 1.00 mg/dL (0.2-1.0) 06/13/21 04:02 AST 33 Units/L (15-37) 06/13/21 04:02 ALT 18 Units/L (12-78) 06/13/21 04:02 Alkaline Phosphatase 85 Units/L (46-116) 06/13/21 04:02 Creatine Kinase 81 Units/L (26-192) 06/12/21 23:37 CK-MB (CK-2) < 1.0 ng/mL (0-4.0) 06/12/21 23:37 CK/CKMB % Calc 1.2 % (<4) 06/12/21 23:37 Troponin I < 0.02 ng/mL (0-1.5) 06/12/21 23:37 C-Reactive Protein 41.10 mg/L (0-3.0) H 06/13/21 04:02 B-Natriuretic Peptide 538 pg/mL (0-79) H* 06/13/21 04:02 Total Protein 6.3 g/dL (6.4-8.2) L 06/13/21 04:02 Albumin 2.7 g/dL (3.4-5.0) L 06/13/21 04:02 Globulin 3.6 g/dL (2.5-4.5) 06/13/21 04:02 Albumin/Globulin Ratio 0.8 Ratio (1.1-2.1) L 06/13/21 04:02 Lipase 290 Units/L (73-393) 06/10/21 15:36 Specimen Type Clean catch urine 06/10/21 16:48 Urine Color Dark yellow (YELLOW) 06/10/21 16:48 Urine Appearance Slightly hazy (CLEAR) 06/10/21 16:48 Urine pH 5.0 (5.0 - 8.0) 06/10/21 16:48 Ur Specific [place] 1.030 (1.000-1.030) 06/10/21 16:48 Urine Protein 3+ (NEGATIVE) 06/10/21 16:48 Urine Glucose (UA) Negative (NEGATIVE) 06/10/21 16:48 Urine Ketones 1+ (NEGATIVE) 06/10/21 16:48 Urine Occult Blood 2+ (NEGATIVE) 06/10/21 16:48 Urine Nitrite Positive (NEGATIVE) 06/10/21 16:48 Urine Bilirubin 2+ (NEGATIVE) 06/10/21 16:48 Urine Urobilinogen 3+ (NORMAL) 06/10/21 16:48 Ur Leukocyte Esterase 1+ (NEGATIVE) 06/10/21 16:48 Urine RBC 0-2 /HPF (0-3) 06/10/21 16:48 Urine WBC 5-10 /HPF (0-5) A 06/10/21 16:48 Ur Squamous Epith Cells Moderate /HPF (NEGATIVE) 06/10/21 16:48 Urine Bacteria 4+ /HPF (NEGATIVE) 06/10/21 16:48 Granular Casts Numerous /LPF (NEGATIVE) 06/10/21 16:48 Ur Culture Indicated? Yes/culture set up 06/10/21 16:48 - Plan (1) Pneumonia due to COVID-19 virus Status: Acute (2) Acute hyponatremia Status: Acute (3) Vomiting and diarrhea Status: Acute
[2021-06-13] MEDS: LASIX PO SCH (11:59)
[2021-06-13] MEDS: ALDACTONE TAB 25 MG PO SCH (11:59)
[2021-06-13] MEDS: COREG TAB 12.5 MG PO SCH (11:59)
--- NOTE | 2021-06-13 16:05 | PCM.PROG ---
Progress Note - Progress Note for Day of Date of Exam: 06/13/21 - Subjective Subjective: IS A 51 YEAR OLD PATIENT OF . SHE WAS ADMITTED ON 06/10 FOR TREATMENT OF PNEUMONIA DUE TO COVID-19, HYPONATREMIA, N/V/D. PATIENT HAS A PMH OF CARDIOMYOPATHY. SHE HAS A DEFIBRILLATOR AND REPORTS THAT HER EJECTION FRACTION IS AROUND 20%. SHE HAD A SYNCOPAL EPISODE YESTERDAY AFTER WE SAW HER ON MORNING ROUNDS. TODAY, SHE IS ALERT AND ORIENTED, LYING IN BED. SHE CONTINUES WITH WEAKNESS AND SHORTNESS OF BREATH, BUT REPORTS SLIGHT IMPROVEMENT IN SYMPTOMS TODAY. SHE IS CURRENTLY ON OXYGEN VIA NASAL CANNULA AT 4 LITERS/MINUTE. ON EXAMINATION, HEART WAS REGULAR IN RATE AND RHYTHM. BILATERAL LUNGS NOTED TO HAVE DIMINISHED LUNG SOUNDS THROUGHOUT. ABDOMEN IS ROUND, SOFT, AND NON-TENDER WITH NORMAL BOWEL SOUNDS NOTED IN ALL QUADRANTS. HER VITALS THIS MORNING WERE: 98.0-53-20-96%-109/68. LABS WERE OBTAINED. ABNORMAL LAB VALUES INCLUDED THE FOLLOWING: WBC 2.9, HGB 11.2, HCT 34.5, BUN 20, CREATININE 1.39, GLUCOSE 129, CALCIUM 8.2, CRP 41.10, BNP 538, TOTAL PROTEIN 6.3, ALBUMIN 2.7. BLOOD AND URINE CULTURES PENDING. CHEST XRAY REVEALED: 1. Resolved venous congestion and pulmonary edema 2. Residual predominantly basilar bronchopneumonia. SHE IS CURRENTLY RECEIVING: REMDESIVIR 100MG PO DAILY, NORMAL SALINE AT KVO, DOXYCYCLINE 100MG IV Q12H, PULMICORT NEBS BID, BROVANA BID, LASIX 40MG PO DAILY, XANAX 0.5MG PO BID PRN, COREG 12.5MG PO BID, PEPCID 20MG PO DAILY, ZOFRAN 4MG IV Q6H PRN, POTASSIUM 10MEQ PO DAILY, AND ALDACTONE 25MG PO DAILY. WE WILL HOLD HER COREG TODAY DUE TO PERSISTENT HYPOTENSION. OTHERWISE, WE WILL CONTINUE WITH CURRENT PLAN OF CARE. WE PLANNED TO FOLLOW UP WITH AM LABS AND CHEST XRAY AND CONTINUE TO MONITOR. TIME SPENT ON CLINICAL ASSESSMENT, REV IEWING LABS AND IMAGING, DECISION MAKING, AND DOCUMENTATION GREATER THAN 75 MINUTES. - Past Medical Family Social History Past Med/Fam/Surg Hx: No changes since H&P Allergies: Allergies methylprednisolone [From Solu-Medrol] Allergy (Severe, Verified 06/12/21 16:07) amoxicillin Allergy (Verified 06/10/21 14:48) prednisone Allergy (Verified 06/08/21 21:11) - Review of Systems ROS: No change since H&P - Vital Signs and I&O's Vital Signs: Temperature 98.0 F Pulse Rate [Apical] 53 Pulse Rate 67 Respiratory Rate 20 Blood Pressure [Left Arm] 109/68 Blood Pressure 101/66 O2 Sat by Pulse Oximetry 96 Intake and Output: Intake & Output 06/11/21 06/12/21 06/13/21 06/14/21 11:59 11:59 11:59 11:59 Intake Total 1215 / 1215 2091 / 2091 3829 / 3829 Output Total 1000 / 1000 1450 / 1450 Balance 1215 / 1215 1091 / 1091 2379 / 2379 - Physical Exam Oriented: Normal Eyes: Normal Ear: Normal Nose: Normal Throat: Normal Respiratory: Generalized, Diminished Cardiovascular: Normal : Normal Auscultation: Bowel Sounds: Normal Palpation: Normal Tenderness: Normal Skin: Normal Musculoskeletal: Normal Psychiatric: Normal Mood Description: Calm, Appropriate Affect: Normal Speech Pattern: Clear, Appropriate - Laboratory and Diagnostics Result Diagrams: 06/13/21 04:02 06/13/21 04:02 Labs: 06/10/21 16:48 Urine,Clean Catch Urine Culture - Final Laboratory WBC 2.9 X10^3/uL (3.6-10.0) L 06/13/21 04:02 RBC 4.26 X10^6/uL (3.5-5.4) 06/13/21 04:02 Hgb 11.2 g/dL (12.0-16.0) L 06/13/21 04:02 Hct 34.5 % (36.0-47.0) L 06/13/21 04:02 MCV 81.0 fL (80.0-100.0) 06/13/21 04:02 MCH 26.4 pg (27.0-34.0) L 06/13/21 04:02 MCHC 32.6 g/dL (33.0-35.0) L 06/13/21 04:02 RDW 18.5 % (11.6-16.5) H 06/13/21 04:02 Plt Count 219 X10^3/uL (150.0-450.0) 06/13/21 04:02 Plt Count Comment Adequate (ADEQUATE) 06/13/21 04:02 MPV 9.7 fL (7.4-11.0) 06/13/21 04:02 Neut % (Auto) 63.3 % (42.0-75.0) 06/13/21 04:02 Lymph % (Auto) 22.9 % (21.0-51.0) 06/13/21 04:02 [place] % (Auto) 13.8 % (0.0-13.0) H 06/13/21 04:02 Eos % (Auto) 0.0 % (0.9-2.9) L 06/13/21 04:02 Baso % (Auto) 0 % (0.2-1.0) L 06/13/21 04:02 Neut # (Auto) 1.9 x10^3/uL (2.2-4.8) L 06/13/21 04:02 Lymph # (Auto) 0.7 X10^3/uL (1.3-2.9) L 06/13/21 04:02 [place] # (Auto) 0.4 x10^3/uL (0.3-0.8) 06/13/21 04:02 Eos # (Auto) 0.0 x10^3/uL (0.0-0.2) 06/13/21 04:02 Baso # (Auto) 0.0 X10^3/uL (0.0-0.1) 06/13/21 04:02 Absolute Nucleated RBC 0.0 /100WBC 06/13/21 04:02 Giant Platelets Few 06/13/21 04:02 Plt Morphology Comment Abnormal (NORMAL) A 06/13/21 04:02 RBC Morphology Abnormal (NORMAL) A 06/13/21 04:02 Hypochromasia Slight A 06/13/21 04:02 Anisocytosis Slight A 06/13/21 04:02 Target Cells Present 06/13/21 04:02 [place] Cells Present 06/13/21 04:02 PT 24.1 SECONDS (11.8-14.3) 06/12/21 12:15 INR Target Range - 06/12/21 12:15 INR 2.28 (0.8-1.3) H 06/12/21 12:15 APTT 34.8 SECONDS (22.9-36.5) 06/12/21 12:15 PTT Comment - 06/12/21 12:15 D-Dimer 1.28 ug/ml (0.0-0.57) H* 06/12/21 08:53 Sample Site Lb 06/12/21 11:36 ABG pH 7.430 (7.35-7.45) 06/12/21 11:36 ABG pCO2 31.0 mmHg (35.0-45.0) L 06/12/21 11:36 ABG pO2 66.0 mmHg (80.0-100.0) L 06/12/21 11:36 ABG HCO3 20.6 mmol/L (22-26) L 06/12/21 11:36 ABG O2 Saturation 93.0 % (90-100) 06/12/21 11:36 ABG Base Excess -2.8 mmol/L (-2.0-2.0) L 06/12/21 11:36 Lawrence Test Pos 06/12/21 11:36 A-a Gradient 95.0 mmHg 06/12/21 11:36 FiO2 28.0 06/12/21 11:36 Blood Gas Comments Pt sravani well cdn ,elj 06/12/21 11:36 Sodium 137 mmol/L (136-145) 06/13/21 04:02 Corrected Sodium 138 mmol/L (136-145) 06/13/21 04:02 Potassium 4.4 mmol/L (3.5-5.1) 06/13/21 04:02 Chloride 103 mmol/L (98-107) 06/13/21 04:02 Carbon Dioxide 23.2 mmol/L (21-32) 06/13/21 04:02 BUN 20 mg/dL (7-18) H 06/13/21 04:02 Creatinine 1.39 mg/dL (0.55-1.02) H 06/13/21 04:02 Est GFR (MDRD) Af Amer 52 (>60) L 06/13/21 04:02 Est GFR (MDRD) Non-Af 43 (>60) L 06/13/21 04:02 Glucose 129 mg/dL (65-99) H 06/13/21 04:02 POC Glucose (mg/dL) 134 mg/dL (65-99) H 06/13/21 12:06 Lactic Acid 1.6 mmol/L (0.4-2.0) 06/12/21 15:38 Calcium 8.2 mg/dL (8.5-10.1) L 06/13/21 04:02 Corrected Calcium 9.2 mg/dL (8.5-10.1) 06/13/21 04:02 Magnesium 1.9 mg/dL (1.7-2.9) 06/13/21 04:02 Total Bilirubin 1.00 mg/dL (0.2-1.0) 06/13/21 04:02 AST 33 Units/L (15-37) 06/13/21 04:02 ALT 18 Units/L (12-78) 06/13/21 04:02 Alkaline Phosphatase 85 Units/L (46-116) 06/13/21 04:02 Creatine Kinase 81 Units/L (26-192) 06/12/21 23:37 CK-MB (CK-2) < 1.0 ng/mL (0-4.0) 06/12/21 23:37 CK/CKMB % Calc 1.2 % (<4) 06/12/21 23:37 Troponin I < 0.02 ng/mL (0-1.5) 06/12/21 23:37 C-Reactive Protein 41.10 mg/L (0-3.0) H 06/13/21 04:02 B-Natriuretic Peptide 538 pg/mL (0-79) H* 06/13/21 04:02 Total Protein 6.3 g/dL (6.4-8.2) L 06/13/21 04:02 Albumin 2.7 g/dL (3.4-5.0) L 06/13/21 04:02 Globulin 3.6 g/dL (2.5-4.5) 06/13/21 04:02 Albumin/Globulin Ratio 0.8 Ratio (1.1-2.1) L 06/13/21 04:02 Lipase 290 Units/L (73-393) 06/10/21 15:36 Specimen Type Clean catch urine 06/10/21 16:48 Urine Color Dark yellow (YELLOW) 06/10/21 16:48 Urine Appearance Slightly hazy (CLEAR) 06/10/21 16:48 Urine pH 5.0 (5.0 - 8.0) 06/10/21 16:48 Ur Specific [place] 1.030 (1.000-1.030) 06/10/21 16:48 Urine Protein 3+ (NEGATIVE) 06/10/21 16:48 Urine Glucose (UA) Negative (NEGATIVE) 06/10/21 16:48 Urine Ketones 1+ (NEGATIVE) 06/10/21 16:48 Urine Occult Blood 2+ (NEGATIVE) 06/10/21 16:48 Urine Nitrite Positive (NEGATIVE) 06/10/21 16:48 Urine Bilirubin 2+ (NEGATIVE) 06/10/21 16:48 Urine Urobilinogen 3+ (NORMAL) 06/10/21 16:48 Ur Leukocyte Esterase 1+ (NEGATIVE) 06/10/21 16:48 Urine RBC 0-2 /HPF (0-3) 06/10/21 16:48 Urine WBC 5-10 /HPF (0-5) A 06/10/21 16:48 Ur Squamous Epith Cells Moderate /HPF (NEGATIVE) 06/10/21 16:48 Urine Bacteria 4+ /HPF (NEGATIVE) 06/10/21 16:48 Granular Casts Numerous /LPF (NEGATIVE) 06/10/21 16:48 Ur Culture Indicated? Yes/culture set up 06/10/21 16:48 - Plan (1) Pneumonia due to COVID-19 virus Status: Acute (2) Acute hyponatremia Status: Acute (3) Vomiting and diarrhea Status: Acute
[2021-06-13] MEDS: REMDESIVIR 100 MG in NS 250 ML IV 250 ML IV SCH (21:17)
[2021-06-13] MEDS: NS 1000 ML 1,000 ML IV SCH (22:33)
[2021-06-14 05:17] LABS: BASOPHILS % (AUTO) 0.4 % (0.2-1.0); HEMATOCRIT 35.1 % (36.0-47.0); HEMOGLOBIN 11.4 g/dL (12.0-16.0); LYMPHOCYTES # (AUTO) 1.2 X10^3/uL (1.3-2.9); MEAN CORPUSCULAR HEMOGLOBIN 26.3 pg (27.0-34.0); MEAN CORPUSCULAR HGB CONC 32.4 g/dL (33.0-35.0); MEAN CORPUSCULAR VOLUME 81.1 fL (80.0-100.0); MEAN PLATELET VOLUME 9.6 fL (7.4-11.0); MONOCYTES # (AUTO) 0.8 x10^3/uL (0.3-0.8); MONOCYTES % (AUTO) 15.2 % (0.0-13.0); NEUTROPHILS # (AUTO) 3.2 x10^3/uL (2.2-4.8); NEUTROPHILS % (AUTO) 61.4 % (42.0-75.0); PLATELET COUNT 312 X10^3/uL (150.0-450.0); RED BLOOD COUNT 4.32 X10^6/uL (3.5-5.4); WHITE BLOOD COUNT 5.1 X10^3/uL (3.6-10.0)
[2021-06-14 05:34] LABS: ALANINE AMINOTRANSFERASE 16 Units/L (12-78); ALBUMIN 2.8 g/dL (3.4-5.0); ALKALINE PHOSPHATASE 83 Units/L (46-116); ASPARTATE AMINO TRANSFERASE 30 Units/L (15-37); BLOOD UREA NITROGEN 22 mg/dL (7-18); CALCIUM 8.7 mg/dL (8.5-10.1); CARBON DIOXIDE 25.3 mmol/L (21-32); CHLORIDE 105 mmol/L (98-107); COR CA(FOR HYPOALB) 9.7 mg/dL (8.5-10.1); CREATININE 1.27 mg/dL (0.55-1.02); SODIUM 139 mmol/L (136-145); TOTAL PROTEIN 6.3 g/dL (6.4-8.2); eGFR NON BLACK RACES 48 (>60)
[2021-06-14] MEDS: BROVANA IN SCH ×2 (08:50→20:00)
[2021-06-14] MEDS: PULMICORT NEB TX 0.5 MG NEB SCH ×2 (08:50→20:00)
[2021-06-14] MEDS: ALDACTONE TAB 25 MG PO SCH (09:15)
[2021-06-14] MEDS: LASIX PO SCH (09:15)
[2021-06-14] MEDS: PEPCID TAB 20 MG PO SCH (09:16)
[2021-06-14] MEDS: MICRO K EXTEN CAP 10 MEQ PO SCH (09:16)
[2021-06-14] MEDS: VIBRAMYCIN 100 MG in D5W 250 ML IV 250 ML IV SCH ×2 (09:16→21:15)
--- NOTE | 2021-06-14 09:17 | PCM.PROG ---
Progress Note Progress Note for Day of Date of Exam: 06/14/21 Subjective Subjective: IS A 51 YEAR OLD PATIENT. SHE WAS ADMITTED ON 06/10 FOR TREATMENT OF PNEUMONIA DUE TO COVID-19, HYPONATREMIA, N/V/D. PATIENT HAS A PMH OF CARDIOMYOPATHY. SHE HAS A DEFIBRILLATOR AND REPORTS THAT HER EJECTION FRACTION IS AROUND 20%. SHE HAD A SYNCOPAL EPISODE ON MONDAY THAT MAY HAVE BEEN RELATED TO STEROIDS SHE RECEIVED, SHE HAS HAD NO EPISODES SINCE IT WAS DISCONTINUED. SHE IS CURRENTLY ON OXYGEN VIA NASAL CANNULA AT 2 LITERS/MINUTE. ON EXAMINATION, HEART WAS REGULAR IN RATE AND RHYTHM. BILATERAL LUNGS NOTED TO HAVE DIMINISHED LUNG SOUNDS THROUGHOUT. ABDOMEN IS ROUND, SOFT, AND NON-TENDER WITH NORMAL BOWEL SOUNDS NOTED IN ALL QUADRANTS. LABS/IMAGING: WBC 5.1, HGB 11.4, PLT 312, NA 139, K 4.5, CREATININE 1.27, GLUCOSE 100. CHEST XRAY REVEALED: 1. Resolved venous congestion and pulmonary edema 2. Residual predominantly basilar bronchopneumonia. SHE IS CURRENTLY RECEIVING: REMDESIVIR 100MG PO DAILY, NORMAL SALINE AT KVO, DOXYCYCLINE 100MG IV Q12H, PULMICORT NEBS BID, BROVANA BID, LASIX 40MG PO DAILY, XANAX 0.5MG PO BID PRN, COREG 12.5MG PO BID, PEPCID 20MG PO DAILY, ZOFRAN 4MG IV Q6H PRN, POTASSIUM 10MEQ PO DAILY, AND ALDACTONE 25MG PO DAILY. WE WILL CONTINUE WITH CURRENT PLAN OF CARE. FOLLOW UP WITH AM LABS AND CONTINUE TO MONITOR. Past Medical Family Social History Past Med/Fam/Surg Hx: No changes since H&P Allergies: Allergies methylprednisolone [From Solu-Medrol] Allergy (Severe, Verified 06/12/21 16:07) amoxicillin Allergy (Verified 06/10/21 14:48) prednisone Allergy (Verified 06/08/21 21:11) Review of Systems ROS: No change since H&P Vital Signs and I&O's Vital Signs: Temperature 98.4 F Pulse Rate [Apical] 66 Pulse Rate 71 Respiratory Rate 19 Blood Pressure [Left Calf] 109/73 Blood Pressure [Left Arm] 109/71 Blood Pressure 101/66 O2 Sat by Pulse Oximetry 98 Intake and Output: Intake & Output 06/11/21 06/12/21 06/13/21 06/14/21 23:59 23:59 23:59 23:59 Intake Total 2871 / 2871 3774 / 3774 1915 / 1915 200 / 200 Output Total 1000 / 1000 1450 / 1450 100 / 100 Balance 1871 / 1871 2324 / 2324 1815 / 1815 200 / 200 Physical Exam Oriented: Normal Eyes: Normal Ear: Normal Nose: Normal Throat: Normal Respiratory: Generalized and Diminished Cardiovascular: Normal : Normal Auscultation: Bowel Sounds: Normal Tenderness: Normal Skin: Normal Musculoskeletal: Normal Psychiatric: Normal Mood Description: Calm and Appropriate Affect: Normal Speech Pattern: Clear and Appropriate Laboratory and Diagnostics Result Diagrams: 06/14/21 04:14 06/14/21 04:14 Labs: 06/10/21 16:48 Urine,Clean Catch Urine Culture - Final Laboratory WBC 5.1 X10^3/uL (3.6-10.0) 06/14/21 04:14 RBC 4.32 X10^6/uL (3.5-5.4) 06/14/21 04:14 Hgb 11.4 g/dL (12.0-16.0) L 06/14/21 04:14 Hct 35.1 % (36.0-47.0) L 06/14/21 04:14 MCV 81.1 fL (80.0-100.0) 06/14/21 04:14 MCH 26.3 pg (27.0-34.0) L 06/14/21 04:14 MCHC 32.4 g/dL (33.0-35.0) L 06/14/21 04:14 RDW 19.0 % (11.6-16.5) H 06/14/21 04:14 Plt Count 312 X10^3/uL (150.0-450.0) 06/14/21 04:14 Plt Count Comment Adequate (ADEQUATE) 06/13/21 04:02 MPV 9.6 fL (7.4-11.0) 06/14/21 04:14 Neut % (Auto) 61.4 % (42.0-75.0) 06/14/21 04:14 Lymph % (Auto) 23.0 % (21.0-51.0) 06/14/21 04:14 [place] % (Auto) 15.2 % (0.0-13.0) H 06/14/21 04:14 Eos % (Auto) 0.0 % (0.9-2.9) L 06/14/21 04:14 Baso % (Auto) 0.4 % (0.2-1.0) 06/14/21 04:14 Neut # (Auto) 3.2 x10^3/uL (2.2-4.8) 06/14/21 04:14 Lymph # (Auto) 1.2 X10^3/uL (1.3-2.9) L 06/14/21 04:14 [place] # (Auto) 0.8 x10^3/uL (0.3-0.8) 06/14/21 04:14 Eos # (Auto) 0.0 x10^3/uL (0.0-0.2) 06/14/21 04:14 Baso # (Auto) 0.0 X10^3/uL (0.0-0.1) 06/14/21 04:14 Absolute Nucleated RBC 0.2 /100WBC 06/14/21 04:14 Giant Platelets Few 06/13/21 04:02 Plt Morphology Comment Abnormal (NORMAL) A 06/13/21 04:02 RBC Morphology Abnormal (NORMAL) A 06/13/21 04:02 Hypochromasia Slight A 06/13/21 04:02 Anisocytosis Slight A 06/13/21 04:02 Target Cells Present 06/13/21 04:02 Eric Cells Present 06/13/21 04:02 PT 24.1 SECONDS (11.8-14.3) 06/12/21 12:15 INR Target Range - 06/12/21 12:15 INR 2.28 (0.8-1.3) H 06/12/21 12:15 APTT 34.8 SECONDS (22.9-36.5) 06/12/21 12:15 PTT Comment - 06/12/21 12:15 D-Dimer 1.28 ug/ml (0.0-0.57) H* 06/12/21 08:53 Sample Site Lb 06/12/21 11:36 ABG pH 7.430 (7.35-7.45) 06/12/21 11:36 ABG pCO2 31.0 mmHg (35.0-45.0) L 06/12/21 11:36 ABG pO2 66.0 mmHg (80.0-100.0) L 06/12/21 11:36 ABG HCO3 20.6 mmol/L (22-26) L 06/12/21 11:36 ABG O2 Saturation 93.0 % (90-100) 06/12/21 11:36 ABG Base Excess -2.8 mmol/L (-2.0-2.0) L 06/12/21 11:36 Lawrence Test Pos 06/12/21 11:36 A-a Gradient 95.0 mmHg 06/12/21 11:36 FiO2 28.0 06/12/21 11:36 Blood Gas Comments Pt sravani well cdn ,elj 06/12/21 11:36 Sodium 139 mmol/L (136-145) 06/14/21 04:14 Corrected Sodium TNP 06/14/21 04:14 Potassium 4.5 mmol/L (3.5-5.1) 06/14/21 04:14 Chloride 105 mmol/L (98-107) 06/14/21 04:14 Carbon Dioxide 25.3 mmol/L (21-32) 06/14/21 04:14 BUN 22 mg/dL (7-18) H 06/14/21 04:14 Creatinine 1.27 mg/dL (0.55-1.02) H 06/14/21 04:14 Est GFR (MDRD) Af Amer 58 (>60) L 06/14/21 04:14 Est GFR (MDRD) Non-Af 48 (>60) L 06/14/21 04:14 Glucose 100 mg/dL (65-99) H 06/14/21 04:14 POC Glucose (mg/dL) 134 mg/dL (65-99) H 06/13/21 12:06 Lactic Acid 1.6 mmol/L (0.4-2.0) 06/12/21 15:38 Calcium 8.7 mg/dL (8.5-10.1) 06/14/21 04:14 Corrected Calcium 9.7 mg/dL (8.5-10.1) 06/14/21 04:14 Magnesium 1.9 mg/dL (1.7-2.9) 06/14/21 04:14 Total Bilirubin 0.90 mg/dL (0.2-1.0) 06/14/21 04:14 AST 30 Units/L (15-37) 06/14/21 04:14 ALT 16 Units/L (12-78) 06/14/21 04:14 Alkaline Phosphatase 83 Units/L (46-116) 06/14/21 04:14 Creatine Kinase 81 Units/L (26-192) 06/12/21 23:37 CK-MB (CK-2) < 1.0 ng/mL (0-4.0) 06/12/21 23:37 CK/CKMB % Calc 1.2 % (<4) 06/12/21 23:37 Troponin I < 0.02 ng/mL (0-1.5) 06/12/21 23:37 C-Reactive Protein 41.10 mg/L (0-3.0) H 06/13/21 04:02 B-Natriuretic Peptide 538 pg/mL (0-79) H* 06/13/21 04:02 Total Protein 6.3 g/dL (6.4-8.2) L 06/14/21 04:14 Albumin 2.8 g/dL (3.4-5.0) L 06/14/21 04:14 Globulin 3.5 g/dL (2.5-4.5) 06/14/21 04:14 Albumin/Globulin Ratio 0.8 Ratio (1.1-2.1) L 06/14/21 04:14 Lipase 290 Units/L (73-393) 06/10/21 15:36 Specimen Type Clean catch urine 06/10/21 16:48 Urine Color Dark yellow (YELLOW) 06/10/21 16:48 Urine Appearance Slightly hazy (CLEAR) 06/10/21 16:48 Urine pH 5.0 (5.0 - 8.0) 06/10/21 16:48 Ur Specific [place] 1.030 (1.000-1.030) 06/10/21 16:48 Urine Protein 3+ (NEGATIVE) 06/10/21 16:48 Urine Glucose (UA) Negative (NEGATIVE) 06/10/21 16:48 Urine Ketones 1+ (NEGATIVE) 06/10/21 16:48 Urine Occult Blood 2+ (NEGATIVE) 06/10/21 16:48 Urine Nitrite Positive (NEGATIVE) 06/10/21 16:48 Urine Bilirubin 2+ (NEGATIVE) 06/10/21 16:48 Urine Urobilinogen 3+ (NORMAL) 06/10/21 16:48 Ur Leukocyte Esterase 1+ (NEGATIVE) 06/10/21 16:48 Urine RBC 0-2 /HPF (0-3) 06/10/21 16:48 Urine WBC 5-10 /HPF (0-5) A 06/10/21 16:48 Ur Squamous Epith Cells Moderate /HPF (NEGATIVE) 06/10/21 16:48 Urine Bacteria 4+ /HPF (NEGATIVE) 06/10/21 16:48 Granular Casts Numerous /LPF (NEGATIVE) 06/10/21 16:48 Ur Culture Indicated? Yes/culture set up 06/10/21 16:48 Plan (1) Pneumonia due to COVID-19 virus: Status: Acute (2) Acute hyponatremia: Status: Acute (3) Vomiting and diarrhea: Status: Acute
[2021-06-14] MEDS ORDERED: MILK OF MAGNESIA ONE (15:19)
[2021-06-14] MEDS ORDERED: MILK OF MAGNESIA PO ONE (15:34)
[2021-06-14] MEDS: NS 1000 ML 1,000 ML IV SCH (18:38)
[2021-06-14] MEDS ORDERED: COLACE CAP 100 MG PO ONE (19:42)
[2021-06-14] MEDS: REMDESIVIR 100 MG in NS 250 ML IV 250 ML IV SCH (20:00)
[2021-06-14] MEDS ORDERED: COLACE CAP 100 MG PO SCH (21:00)
[2021-06-14] MEDS: COREG TAB 12.5 MG PO SCH (21:19)
[2021-06-14] MEDS: ZOFRAN INJ 4 MG VIAL IVP PRN (21:56)
[2021-06-14] MEDS ORDERED: TYLENOL 325 MG TAB PO PRN (21:57)
[2021-06-15 05:46] LABS: BASOPHILS % (AUTO) 0.3 % (0.2-1.0); EOSINOPHILS % (AUTO) 0.3 % (0.9-2.9); HEMATOCRIT 35.1 % (36.0-47.0); HEMOGLOBIN 11.2 g/dL (12.0-16.0); LYMPHOCYTES # (AUTO) 1.7 X10^3/uL (1.3-2.9); LYMPHOCYTES % (AUTO) 26.2 % (21.0-51.0); MEAN CORPUSCULAR HEMOGLOBIN 25.2 pg (27.0-34.0); MEAN CORPUSCULAR HGB CONC 31.9 g/dL (33.0-35.0); MEAN CORPUSCULAR VOLUME 79.2 fL (80.0-100.0); MEAN PLATELET VOLUME 9.4 fL (7.4-11.0); MONOCYTES % (AUTO) 15.9 % (0.0-13.0); NEUTROPHILS # (AUTO) 3.6 x10^3/uL (2.2-4.8); NEUTROPHILS % (AUTO) 57.3 % (42.0-75.0); PLATELET COUNT 347 X10^3/uL (150.0-450.0); RED BLOOD COUNT 4.44 X10^6/uL (3.5-5.4); RED CELL DISTRIBUTION WIDTH 18.9 % (11.6-16.5); WHITE BLOOD COUNT 6.3 X10^3/uL (3.6-10.0)
[2021-06-15 05:56] LABS: ALANINE AMINOTRANSFERASE 16 Units/L (12-78); ALBUMIN 2.7 g/dL (3.4-5.0); ALKALINE PHOSPHATASE 81 Units/L (46-116); ASPARTATE AMINO TRANSFERASE 24 Units/L (15-37); BLOOD UREA NITROGEN 23 mg/dL (7-18); CALCIUM 8.7 mg/dL (8.5-10.1); CARBON DIOXIDE 24.4 mmol/L (21-32); CHLORIDE 103 mmol/L (98-107); COR CA(FOR HYPOALB) 9.7 mg/dL (8.5-10.1); SODIUM 136 mmol/L (136-145); TOTAL PROTEIN 6.2 g/dL (6.4-8.2); eGFR NON BLACK RACES 56 (>60)
--- NOTE | 2021-06-15 06:32 | RAD ---
HISTORYCOVID PNEUMONIASTUDYCHEST, 1 [id number]/2021.[id number] view of the chestFINDINGSThe cardiac silhouette is stably enlarged. Mediastinal contours appear stable. Interval improvement in scattered bilateral airspace opacities. No definite pleural effusion or pneumothorax.IMPRESSIONStable cardiomegaly. Interval improvement in bilateral airspace opacities consistent with pneumonia.Electronically signed by: Yohan Dash (Jun 15, 2021 06:31:22)
[2021-06-15] MEDS: PEPCID TAB 20 MG PO SCH (08:57)
[2021-06-15] MEDS: VIBRAMYCIN 100 MG in D5W 250 ML IV 250 ML IV SCH (08:57)
[2021-06-15] MEDS: MICRO K EXTEN CAP 10 MEQ PO SCH (08:57)
[2021-06-15] MEDS: BROVANA IN SCH (09:00)
[2021-06-15] MEDS: PULMICORT NEB TX 0.5 MG NEB SCH (09:00)
[2021-06-15] MEDS: ALDACTONE TAB 25 MG PO SCH (09:08)
[2021-06-15] MEDS: LASIX PO SCH (09:08)
[2021-06-15] MEDS: COREG TAB 12.5 MG PO SCH (09:09)
--- NOTE | 2021-06-15 09:30 | W.DIS.FURT ---
Summary of Discharge Discharge Summary of Date Date of Exam: 06/15/21 Admission Date Date of Admission: 06/10/21 Admission Diagnosis Patient Problems (Updated 06/10/21 @ 19:04 by Alexis Mauricio) Acute hyponatremia (Acute) E87.1 Vomiting and diarrhea (Acute) R11.10, R19.7 Pneumonia due to COVID-19 virus (Acute) U07.1, J12.82 Hospital Course: PT IS A 51 YEAR OLD FEMALE. SHE WAS ADMITTED ON 06/10 FOR TREATMENT OF PNEUMONIA DUE TO COVID-19, HYPONATREMIA, N/V/D. PATIENT HAS A PMH OF CARDIOMYOPATHY. SHE HAS A DEFIBRILLATOR AND REPORTS THAT HER EJECTION FRACTION IS AROUND 20%. HER HOSPITAL/TREATMENT COURSE INCLUDED: REMDESIVIR 100MG PO DAILY, NORMAL SALINE AT KVO, DOXYCYCLINE 100MG IV Q12H, PULMICORT NEBS BID, BROVANA BID, LASIX 40MG PO DAILY, XANAX 0.5MG PO BID PRN, COREG 12.5MG PO BID, PEPCID 20MG PO DAILY, ZOFRAN 4MG IV Q6H PRN, POTASSIUM 10MEQ PO DAILY, AND ALDACTONE 25MG PO DAILY. PT RESPONDED WELL TO TREATMENTS. SHE DID NOT REQUIRE SUPPLEMENTAL OXYGEN ON DISCHARGE. PHYSICAL THERAPY RECOMMENDS HOME HEALTH THAT WILL BE ARRANGED BY CASE MANAGEMENT. PT WAS DISCHARGED IN STABLE CONDITION. INSTRUCTED TO FOLLOW UP WITH PCP IN 3-5 DAYS. Vital Signs: Vital Signs (72 hours) 06/12/21 12:00 06/12/21 12:08 06/12/21 12:20 Temperature 98.1 F Pulse Rate Pulse Rate [Apical] 70 82 93 H Respiratory Rate 22 37 H 35 H Blood Pressure [Left Arm] 117/75 125/84 Blood Pressure [Left Calf] O2 Sat by Pulse Oximetry 100 88 L 91 L 06/12/21 12:30 06/12/21 12:46 06/12/21 13:30 Temperature Pulse Rate Pulse Rate [Apical] 96 H 93 H 67 Respiratory Rate 38 H 38 H 36 H Blood Pressure [Left Arm] 126/77 137/80 100/60 Blood Pressure [Left Calf] O2 Sat by Pulse Oximetry 96 94 L 100 06/12/21 15:54 06/12/21 20:00 06/12/21 20:05 Temperature 98.2 F Pulse Rate 67 Pulse Rate [Apical] 89 65 Respiratory Rate 37 H 22 Blood Pressure [Left Arm] 120/83 106/62 Blood Pressure [Left Calf] O2 Sat by Pulse Oximetry 91 L 95 96 06/12/21 21:00 06/12/21 22:00 06/12/21 23:00 Temperature Pulse Rate Pulse Rate [Apical] 66 62 61 Respiratory Rate 20 20 20 Blood Pressure [Left Arm] 112/69 98/64 102/64 Blood Pressure [Left Calf] O2 Sat by Pulse Oximetry 97 97 96 06/13/21 00:00 06/13/21 01:00 06/13/21 02:00 Temperature 98.4 F Pulse Rate Pulse Rate [Apical] 61 65 61 Respiratory Rate 15 20 20 Blood Pressure [Left Arm] 110/61 99/62 103/59 Blood Pressure [Left Calf] O2 Sat by Pulse Oximetry 99 94 L 98 06/13/21 03:00 06/13/21 04:00 06/13/21 05:00 Temperature 98.0 F Pulse Rate Pulse Rate [Apical] 52 L 56 L 52 L Respiratory Rate 20 20 20 Blood Pressure [Left Arm] 99/55 100/60 106/59 Blood Pressure [Left Calf] O2 Sat by Pulse Oximetry 99 95 97 06/13/21 06:00 06/13/21 07:00 06/13/21 08:00 Temperature 97.7 F Pulse Rate Pulse Rate [Apical] 53 L 52 L 53 L Respiratory Rate 20 18 17 Blood Pressure [Left Arm] 109/68 105/63 109/67 Blood Pressure [Left Calf] O2 Sat by Pulse Oximetry 96 97 98 06/13/21 09:00 06/13/21 10:00 06/13/21 11:00 Temperature Pulse Rate Pulse Rate [Apical] 52 L 61 67 Respiratory Rate 20 15 Blood Pressure [Left Arm] 112/69 120/73 95/67 Blood Pressure [Left Calf] O2 Sat by Pulse Oximetry 97 97 94 L 06/13/21 12:00 06/13/21 13:00 06/13/21 14:00 Temperature 98.1 F Pulse Rate Pulse Rate [Apical] 60 62 65 Respiratory Rate 24 25 H 27 H Blood Pressure [Left Arm] 97/61 92/55 109/63 Blood Pressure [Left Calf] O2 Sat by Pulse Oximetry 94 L 95 94 L 06/13/21 15:00 06/13/21 16:00 06/13/21 17:00 Temperature Pulse Rate Pulse Rate [Apical] 96 H 97 H 98 H Respiratory Rate 24 23 25 H Blood Pressure [Left Arm] 108/65 111/68 106/64 Blood Pressure [Left Calf] O2 Sat by Pulse Oximetry 96 97 98 06/13/21 18:00 06/13/21 19:00 06/13/21 20:00 Temperature 97.8 F Pulse Rate Pulse Rate [Apical] 67 67 69 Respiratory Rate 24 24 Blood Pressure [Left Arm] 109/71 Blood Pressure [Left Calf] 107/69 109/69 O2 Sat by Pulse Oximetry 100 100 100 06/13/21 20:10 06/13/21 21:00 06/13/21 22:00 Temperature Pulse Rate 71 Pulse Rate [Apical] 70 67 Respiratory Rate 25 H 26 H Blood Pressure [Left Arm] Blood Pressure [Left Calf] 118/74 114/72 O2 Sat by Pulse Oximetry 100 100 99 06/13/21 23:00 06/14/21 00:00 06/14/21 01:00 Temperature 97.7 F Pulse Rate Pulse Rate [Apical] 66 64 66 Respiratory Rate 21 19 19 Blood Pressure [Left Arm] Blood Pressure [Left Calf] 108/71 106/64 105/69 O2 Sat by Pulse Oximetry 100 100 99 06/14/21 02:00 06/14/21 03:00 06/14/21 04:00 Temperature Pulse Rate Pulse Rate [Apical] 68 69 62 Respiratory Rate 22 20 19 Blood Pressure [Left Arm] Blood Pressure [Left Calf] 105/65 108/70 107/63 O2 Sat by Pulse Oximetry 99 100 99 06/14/21 05:00 06/14/21 06:00 06/14/21 07:00 Temperature 98.4 F Pulse Rate Pulse Rate [Apical] 58 L 61 62 Respiratory Rate 16 18 18 Blood Pressure [Left Arm] Blood Pressure [Left Calf] 110/74 105/66 107/66 O2 Sat by Pulse Oximetry 99 98 98 06/14/21 08:00 06/14/21 09:00 06/14/21 12:00 Temperature 97.7 F Pulse Rate Pulse Rate [Apical] 66 68 64 Respiratory Rate 19 15 20 Blood Pressure [Left Arm] Blood Pressure [Left Calf] 109/73 120/76 136/83 O2 Sat by Pulse Oximetry 98 98 98 06/14/21 15:56 06/14/21 17:00 06/14/21 18:00 Temperature 98.1 F Pulse Rate Pulse Rate [Apical] 71 68 72 Respiratory Rate 24 23 22 Blood Pressure [Left Arm] Blood Pressure [Left Calf] 124/71 125/77 119/74 O2 Sat by Pulse Oximetry 98 98 98 06/14/21 19:00 06/14/21 20:00 06/14/21 21:00 Temperature 97.1 F L Pulse Rate 68 Pulse Rate [Apical] 69 66 67 Respiratory Rate 21 25 H 17 Blood Pressure [Left Arm] Blood Pressure [Left Calf] 119/76 117/69 117/68 O2 Sat by Pulse Oximetry 98 100 98 06/14/21 22:00 06/14/21 22:22 06/14/21 23:00 Temperature Pulse Rate Pulse Rate [Apical] 64 68 Respiratory Rate 12 20 12 Blood Pressure [Left Arm] Blood Pressure [Left Calf] 113/66 117/80 O2 Sat by Pulse Oximetry 98 98 06/14/21 23:22 06/15/21 00:00 06/15/21 01:00 Temperature 97.6 F Pulse Rate Pulse Rate [Apical] 62 62 Respiratory Rate 18 17 19 Blood Pressure [Left Arm] Blood Pressure [Left Calf] 121/78 121/77 O2 Sat by Pulse Oximetry 99 98 06/15/21 02:00 06/15/21 03:00 06/15/21 04:00 Temperature 97.8 F Pulse Rate Pulse Rate [Apical] 62 64 63 Respiratory Rate 20 17 20 Blood Pressure [Left Arm] Blood Pressure [Left Calf] 105/65 106/71 110/64 O2 Sat by Pulse Oximetry 99 100 100 06/15/21 05:00 06/15/21 06:00 06/15/21 07:00 Temperature Pulse Rate Pulse Rate [Apical] 62 61 61 Respiratory Rate 18 17 17 Blood Pressure [Left Arm] Blood Pressure [Left Calf] 114/67 113/69 124/66 O2 Sat by Pulse Oximetry 100 99 100 06/15/21 08:00 06/15/21 09:00 Temperature 97.7 F Pulse Rate Pulse Rate [Apical] 59 L 65 Respiratory Rate 16 18 Blood Pressure [Left Arm] Blood Pressure [Left Calf] 102/60 143/84 O2 Sat by Pulse Oximetry 100 100 Labs: Laboratory Last Values WBC 6.3 X10^3/uL (3.6-10.0) 06/15/21 04:21 RBC 4.44 X10^6/uL (3.5-5.4) 06/15/21 04:21 Hgb 11.2 g/dL (12.0-16.0) L 06/15/21 04:21 Hct 35.1 % (36.0-47.0) L 06/15/21 04:21 MCV 79.2 fL (80.0-100.0) L 06/15/21 04:21 MCH 25.2 pg (27.0-34.0) L 06/15/21 04:21 MCHC 31.9 g/dL (33.0-35.0) L 06/15/21 04:21 RDW 18.9 % (11.6-16.5) H 06/15/21 04:21 Plt Count 347 X10^3/uL (150.0-450.0) 06/15/21 04:21 Plt Count Comment Adequate (ADEQUATE) 06/13/21 04:02 MPV 9.4 fL (7.4-11.0) 06/15/21 04:21 Neut % (Auto) 57.3 % (42.0-75.0) 06/15/21 04:21 Lymph % (Auto) 26.2 % (21.0-51.0) 06/15/21 04:21 [place] % (Auto) 15.9 % (0.0-13.0) H 06/15/21 04:21 Eos % (Auto) 0.3 % (0.9-2.9) L 06/15/21 04:21 Baso % (Auto) 0.3 % (0.2-1.0) 06/15/21 04:21 Neut # (Auto) 3.6 x10^3/uL (2.2-4.8) 06/15/21 04:21 Lymph # (Auto) 1.7 X10^3/uL (1.3-2.9) 06/15/21 04:21 [place] # (Auto) 1.0 x10^3/uL (0.3-0.8) H 06/15/21 04:21 Eos # (Auto) 0.0 x10^3/uL (0.0-0.2) 06/15/21 04:21 Baso # (Auto) 0.0 X10^3/uL (0.0-0.1) 06/15/21 04:21 Absolute Nucleated RBC 0.1 /100WBC 06/15/21 04:21 Giant Platelets Few 06/13/21 04:02 Plt Morphology Comment Abnormal (NORMAL) A 06/13/21 04:02 RBC Morphology Abnormal (NORMAL) A 06/13/21 04:02 Hypochromasia Slight A 06/13/21 04:02 Anisocytosis Slight A 06/13/21 04:02 Target Cells Present 06/13/21 04:02 Eric Cells Present 06/13/21 04:02 PT 24.1 SECONDS (11.8-14.3) 06/12/21 12:15 INR Target Range - 06/12/21 12:15 INR 2.28 (0.8-1.3) H 06/12/21 12:15 APTT 34.8 SECONDS (22.9-36.5) 06/12/21 12:15 PTT Comment - 06/12/21 12:15 D-Dimer 1.28 ug/ml (0.0-0.57) H* 06/12/21 08:53 Sample Site Lb 06/12/21 11:36 ABG pH 7.430 (7.35-7.45) 06/12/21 11:36 ABG pCO2 31.0 mmHg (35.0-45.0) L 06/12/21 11:36 ABG pO2 66.0 mmHg (80.0-100.0) L 06/12/21 11:36 ABG HCO3 20.6 mmol/L (22-26) L 06/12/21 11:36 ABG O2 Saturation 93.0 % (90-100) 06/12/21 11:36 ABG Base Excess -2.8 mmol/L (-2.0-2.0) L 06/12/21 11:36 Lawrence Test Pos 06/12/21 11:36 A-a Gradient 95.0 mmHg 06/12/21 11:36 FiO2 28.0 06/12/21 11:36 Blood Gas Comments Pt sravani well cdn ,elj 06/12/21 11:36 Sodium 136 mmol/L (136-145) 06/15/21 04:21 Corrected Sodium TNP 06/15/21 04:21 Potassium 4.5 mmol/L (3.5-5.1) 06/15/21 04:21 Chloride 103 mmol/L (98-107) 06/15/21 04:21 Carbon Dioxide 24.4 mmol/L (21-32) 06/15/21 04:21 BUN 23 mg/dL (7-18) H 06/15/21 04:21 Creatinine 1.10 mg/dL (0.55-1.02) H 06/15/21 04:21 Est GFR (MDRD) Af Amer > 60 (>60) 06/15/21 04:21 Est GFR (MDRD) Non-Af 56 (>60) L 06/15/21 04:21 Glucose 95 mg/dL (65-99) 06/15/21 04:21 POC Glucose (mg/dL) 134 mg/dL (65-99) H 06/13/21 12:06 Lactic Acid 1.6 mmol/L (0.4-2.0) 06/12/21 15:38 Calcium 8.7 mg/dL (8.5-10.1) 06/15/21 04:21 Corrected Calcium 9.7 mg/dL (8.5-10.1) 06/15/21 04:21 Magnesium 1.9 mg/dL (1.7-2.9) 06/14/21 04:14 Total Bilirubin 0.90 mg/dL (0.2-1.0) 06/15/21 04:21 AST 24 Units/L (15-37) 06/15/21 04:21 ALT 16 Units/L (12-78) 06/15/21 04:21 Alkaline Phosphatase 81 Units/L (46-116) 06/15/21 04:21 Creatine Kinase 81 Units/L (26-192) 06/12/21 23:37 CK-MB (CK-2) < 1.0 ng/mL (0-4.0) 06/12/21 23:37 CK/CKMB % Calc 1.2 % (<4) 06/12/21 23:37 Troponin I < 0.02 ng/mL (0-1.5) 06/12/21 23:37 C-Reactive Protein 41.10 mg/L (0-3.0) H 06/13/21 04:02 B-Natriuretic Peptide 538 pg/mL (0-79) H* 06/13/21 04:02 Total Protein 6.2 g/dL (6.4-8.2) L 06/15/21 04:21 Albumin 2.7 g/dL (3.4-5.0) L 06/15/21 04:21 Globulin 3.5 g/dL (2.5-4.5) 06/15/21 04:21 Albumin/Globulin Ratio 0.8 Ratio (1.1-2.1) L 06/15/21 04:21 Lipase 290 Units/L (73-393) 06/10/21 15:36 Specimen Type Clean catch urine 06/10/21 16:48 Urine Color Dark yellow (YELLOW) 06/10/21 16:48 Urine Appearance Slightly hazy (CLEAR) 06/10/21 16:48 Urine pH 5.0 (5.0 - 8.0) 06/10/21 16:48 Ur Specific [place] 1.030 (1.000-1.030) 06/10/21 16:48 Urine Protein 3+ (NEGATIVE) 06/10/21 16:48 Urine Glucose (UA) Negative (NEGATIVE) 06/10/21 16:48 Urine Ketones 1+ (NEGATIVE) 06/10/21 16:48 Urine Occult Blood 2+ (NEGATIVE) 06/10/21 16:48 Urine Nitrite Positive (NEGATIVE) 06/10/21 16:48 Urine Bilirubin 2+ (NEGATIVE) 06/10/21 16:48 Urine Urobilinogen 3+ (NORMAL) 06/10/21 16:48 Ur Leukocyte Esterase 1+ (NEGATIVE) 06/10/21 16:48 Urine RBC 0-2 /HPF (0-3) 06/10/21 16:48 Urine WBC 5-10 /HPF (0-5) A 06/10/21 16:48 Ur Squamous Epith Cells Moderate /HPF (NEGATIVE) 06/10/21 16:48 Urine Bacteria 4+ /HPF (NEGATIVE) 06/10/21 16:48 Granular Casts Numerous /LPF (NEGATIVE) 06/10/21 16:48 Ur Culture Indicated? Yes/culture set up 06/10/21 16:48 Reason For Visit: HYPONATREMIA, VOMITING, DIARRHEA, COVID Discharge Date Discharge Date: 06/15/21 Discharge Diagnosis All Active Problems (Updated 06/10/21 @ 19:04 by Alexis Mauricio) Acute dehydration (Acute) Diarrhea (Acute) COVID-19 virus infection (Acute) Acute hyponatremia (Acute) Vomiting and diarrhea (Acute) Pneumonia due to COVID-19 virus (Acute) Plan of Treatment: Continue with present treatment and follow up plan. Pt is to keep follow up appointment as instructed and take medications as ordered. Discharge Medications Discharge Medications: methylprednisolone [From Solu-Medrol] Allergy (Severe, Verified 06/12/21 16:07) amoxicillin Allergy (Verified 06/10/21 14:48) prednisone Allergy (Verified 06/08/21 21:11) CONTINUE taking the following medications Eliquis 2.5 mg PO BID 06/11/21 [History] carvedilol 12.5 mg PO BID 06/11/21 [History] furosemide 40 mg PO DAILY 06/11/21 [History] potassium chloride 10 meq PO DAILY 06/11/21 [History] spironolactone 25 mg PO DAILY 06/11/21 [History] New Prescriptions alprazolam 0.5 mg PO BID PRN 7 Days #14 tab MDD 2 tabs 06/15/21 [Rx] famotidine 20 mg PO DAILY 30 Days #30 tab 06/15/21 [Rx] Discharge Disposition Assessment: Stable no acute distress noted at discharge. Discharge Disposition: HOME Discharge Condition: STABLE Discharge Plan Discharge Plan Hospital Course: PT IS A 51 YEAR OLD FEMALE. SHE WAS ADMITTED ON 06/10 FOR TREATMENT OF PNEUMONIA DUE TO COVID-19, HYPONATREMIA, N/V/D. PATIENT HAS A PMH OF CARDIOMYOPATHY. SHE HAS A DEFIBRILLATOR AND REPORTS THAT HER EJECTION FRACTION IS AROUND 20%. HER HOSPITAL/TREATMENT COURSE INCLUDED: REMDESIVIR 100MG PO DAILY, NORMAL SALINE AT KVO, DOXYCYCLINE 100MG IV Q12H, PULMICORT NEBS BID, BROVANA BID, LASIX 40MG PO DAILY, XANAX 0.5MG PO BID PRN, COREG 12.5MG PO BID, PEPCID 20MG PO DAILY, ZOFRAN 4MG IV Q6H PRN, POTASSIUM 10MEQ PO DAILY, AND ALDACTONE 25MG PO DAILY. PT RESPONDED WELL TO TREATMENTS. SHE DID NOT REQUIRE SUPPLEMENTAL OXYGEN ON DISCHARGE. PHYSICAL THERAPY RECOMMENDS HOME HEALTH THAT WILL BE ARRANGED BY CASE MANAGEMENT. PT WAS DISCHARGED IN STABLE CONDITION. INSTRUCTED TO FOLLOW UP WITH PCP IN 3-5 DAYS. Patient Disposition: HOME HEALTH SERVICE Condition: Stable Health Concerns: Post Hospitalization: new medications and changes needed to prevent readmission or further decline. Pt educated and given instructions on all concerns. Care Plan Goals: Problem: Infection Goal: Temperature within normal limits. Resolved infection. Instructions: Follow provided instructions. Follow up with primary physician as directed. Contact primary care physician or report to the closest Emergency Room if condition worsens. Plan of Treatment: Continue with present treatment and follow up plan. Pt is to keep follow up appointment as instructed and take medications as ordered. Assessment: Stable no acute distress noted at discharge. Prescriptions: New famotidine 20 mg Tablet 20 mg PO DAILY 30 Days Qty: 30 RF: 0 alprazolam 0.5 mg tablet 0.5 mg PO BID MDD 2 tabs PRN7 Days Qty: 14 RF: 0 loperamide 2 mg tablet 2 mg PO Q4H PRN (Reason: diarrhea) 10 Days Qty: 30 RF: 0 Continued ondansetron HCl [Zofran] 4 mg tablet 4 mg PO Q8H PRNQty: 15 RF: 0 furosemide 40 mg tablet 40 mg PO DAILY RF: 0 carvedilol 12.5 mg tablet 12.5 mg PO BID RF: 0 potassium chloride 10 mEq tablet extended release 10 meq PO DAILY RF: 0 spironolactone 25 mg tablet 25 mg PO DAILY RF: 0 Eliquis 2.5 mg tablet 2.5 mg PO BID RF: 0 Discontinued diphenoxylate-atropine [Lomotil] 2.5-0.025 mg tablet 1 tab PO Q8H PRNQty: 15 RF: 0 zinc sulfate 50 mg zinc (220 mg) tablet 220 mg PO BID RF: 0 Follow ups/Referrals Follow ups/Referrals: SRINIVASA ESCOBAR [Primary Care Provider] - 06/22/21 12:00 am (Call to schedule follow up appointment) Instructions Instructions: Incentive Spirometer, Food Choices for Gastroesophageal Reflux Disease, Adult, Hand Washing, [id number], Upper Respiratory Infection, Adult, [id number]-pr-[id number], Rehydration, Adult, Weakness, [id number], Hypertension, [id number]-dw-[id number], Hyponatremia, Uvtl-[id number]-Mwfr, Diarrhea, Adult, Oply-ni-[id number], Community-Acquired Pneumonia, Adult, [id number]-fa-[id number]
[2021-06-15] MEDS ORDERED: IMODIUM CAP 2 MG PO ONE (11:03)
[2021-06-15 12:10] VITALS: BP 132/87
== END 2021-06-15 12:35 | disposition home health service (06) | DRG 177 ==
LOC: MED/SURG 14:47 → ER 14:47 → MED/SURG 20:40 → ICU 06-12 12:47
PROVIDERS: ADMIT Family Medicine; ATTEND Family Medicine
DX: R79.1 Abnormal coagulation profile; R79.82 Elevated C-reactive protein (CRP); E87.1 Hypo-osmolality and hyponatremia; R11.2 Nausea with vomiting, unspecified; R26.89 Other abnormalities of gait and mobility; R42 Dizziness and giddiness; E86.0 Dehydration; R06.02 Shortness of breath; R94.31 Abnormal electrocardiogram [ECG] [EKG]; Z95.810 Presence of automatic (implantable) cardiac defibrillator; J12.82 Pneumonia due to coronavirus disease 2019; U07.1 COVID-19; R19.7 Diarrhea, unspecified